=== PATIENT | female | born 1960 | race Caucasian/White ===

== ENCOUNTER 2025-08-12 06:38 | Inpatient (IN) | payer MEDICARE, SELFPAY ==
[2025-08-12] VITALS (54 sets, daily range): BP systolic 53–123; BP diastolic 25–79; PULSE 70–96; RESP 12–25; TEMP 32.4–36.7; O2SAT 92–100; BMI 36.8
--- NOTE | ~2025-08-12 | XR_ITS ---
Examination: XR chest 1V portable Clinical History: AMS, Liver failure Comparison: None Technique: Portable AP Findings: Heart size enlarged. Left mid and lower lung airspace disease, atelectasis, and diffusion. Extensive right perihilar opacity. No acute bony abnormality. IMPRESSION: 1. Recommend CT chest with contrast to better evaluate right perihilar abnormalities. 2. Left lung airspace disease and pleural effusion. Reviewed, dictated and finalized at location R. IMPRESSION: 1. Recommend CT chest with contrast to better evaluate right perihilar abnorma lities. 2. Left lung airspace disease and pleural effusion.
--- NOTE | ~2025-08-12 | XR_ITS ---
EXAMINATION: XR chest ET placement 08/12/2025 09:43 INDICATION: After intubation to confirm ETT placement TECHNIQUE:A single portable AP frontal image of the chest was obtained COMPARISON: Chest x-ray 08/12/2025; CT chest abdomen pelvis 08/12/2025 FINDINGS: Cardiomediastinal silhouette is moderately enlarged, unchanged. Nasogastric tube courses below the diaphragm, its tip is not visualized. No pneumothorax. Small right-sided pleural effusion. Small to moderate-sized left- sided pleural effusion. Moderate-sized patchy consolidations in the left lung most prominent in the lower lung. Interstitial and air space opacities scattered throughout both lungs. Tip of the endotracheal tube is 2.9 cm above the gray. Defect in the right mid clavicle with associated 5.8 cm mass. IMPRESSION: 1: Tip of the endotracheal tube is 2.9 cm above the gray. 2. Nasogastric tube courses below the diaphragm, its tip is not visualized. 3. Small right-sided pleural effusion. Small to moderate-sized left-sided pleural effusion. 4. Moderate-sized patchy consolidations in the left lung most prominent in the left lower lung. Recommend follow-up to resolution. 5. Interstitial and airspace opacities scattered throughout both lungs. Recommend follow-up to resolution. 6. Defect in the right mid clavicle with an associated 5.8 cm mass. Correlate clinically. Consider dedicated x-rays of the right clavicle further assessment Reviewed, dictated and finalized at location Q. IMPRESSION: 1: Tip of the endotracheal tube is 2.9 cm above the gray. 2. Nasogastric tube courses below the diaphragm, its tip is not visualized. 3. Small right-sided pleural effusion. Small to moderate-sized left-sided pleur al effusion. 4. Moderate-sized patchy consolidations in the left lung most prominent in the left lower lung. Recommend follow-up to resolution. 5. Interstitial and airspace opacities scattered throughout both lungs. Recomme nd follow-up to resolution. 6. Defect in the right mid clavicle with an associated 5.8 cm mass. Correlate c linically. Consider dedicated x-rays of the right clavicle further assessment
--- NOTE | ~2025-08-12 | CT_ITS ---
EXAMINATION: CT chest abdomen pelvis wo con DATE: 08/12/2025 07:50 INDICATION: Cirrhosis. Altered mental status. TECHNIQUE: Computed tomography (CT) of the chest, abdomen, and pelvis was performed without intravenous contrast. Automated exposure control and iterative reconstruction technique were employed. The dose-length product was 1872.50 mGy-cm. COMPARISON: None FINDINGS: CHEST CT: Small bilateral pleural effusions, left greater than right with associated dependent atelectasis in the bilateral upper and lower lobes. Mild cardiomegaly. Pulmonary vascular congestion with enlargement of the central pulmonary arteries but without omega pulmonary edema. There is decreased density of the blood pool relative to myocardium consistent with anemia. No pericardial effusion. Atherosclerotic coronary artery and aortic valve calcifications. Thoracic aorta are normal in caliber. No pathologically enlarged thoracic lymphadenopathy. There is a 6.0 x 4.7 cm loculated fluid collection with subtle peripheral rim calcification which is centered at a chronic nonunited fracture of the mid right clavicle. ABDOMEN/PELVIS CT: Shrunken nodular cirrhotic liver. Small calcified gallstones layering dependently in the nondistended gallbladder. Splenomegaly measuring 15.5 cm in length which along with prominent splenorenal collaterals are consistent with with secondary portal venous hypertension. Left adrenal gland is unremarkable in the clearly distinguish from the splenorenal collaterals. Right adrenal gland and pancreas are normal. Bilateral nonobstructing nephrolithiasis with 5 stones measuring up to 6 mm in the left kidney and at least 3 stones in the left kidney also measuring up to 5 mm maximal diameter. There is a couple stones in the proximal right ureter the larger and more caudal measuring 3 mm. No secondary hydronephrosis. There are a few phleboliths along the bilateral gonadal veins. Dockery catheter within the decompressed bladder. The uterus is not identified and has likely been surgically resected. No bowel obstruction. Normal appendix. There is wall thickening at the proximal colon which could be due to colitis or hepatic colopathy. Pelvic floor relaxation. Small amount of ascites scattered throughout the abdomen and pelvis. There is prominent mesenteric, retroperitoneal and extensive body wall edema. IMPRESSION: 1. Cardiomegaly with prominent pulmonary vascular congestion but without omega pulmonary edema. 2. Small bilateral pleural effusions with associated dependent compressive atelectasis in both lungs. 3. Cirrhosis with splenomegaly and prominent splenorenal collaterals consistent with secondary portal venous hypertension. 4. Bilateral nephrolithiasis including a couple stones measuring up to 3 mm in the proximal right ureter but without secondary hydronephrosis. 5. Edematous wall thickening in the proximal colon most likely related to hepatic colopathy with differential including colitis which could be infectious, inflammatory or ischemic in etiology. 6. Cholelithiasis. 7. Extensive body wall, mesenteric and retroperitoneal edema and small amount of ascites likely related to liver disease. 8. 6.0 x 4.7 cm loculated fluid collection without evident solid soft tissue component situated in the space between the ends of chronic nonunited right clavicle fracture. This could represent at the distal bursal formation related to the pseudoarthrosis between the nonunited bone fragments or chronic seroma. Could consider further evaluation with pre and postcontrast MRI to exclude an enhancing solid soft tissue component occult on noncontrast CT. 9. Anemia. Reviewed, dictated and finalized at location A. IMPRESSION: 1. Cardiomegaly with prominent pulmonary vascular congestion but without omega pulmonary edema. 2. Small bilateral pleural effusions with associated dependent compressive atel ectasis in both lungs. 3. Cirrhosis with splenomegaly and prominent splenorenal collaterals consistent with secondary portal venous hypertension. 4. Bilateral nephrolithiasis including a couple stones measuring up to 3 mm in the proximal right ureter but without secondary hydronephrosis. 5. Edematous wall thickening in the proximal colon most likely related to hepat ic colopathy with differential including colitis which could be infectious, inf lammatory or ischemic in etiology. 6. Cholelithiasis. 7. Extensive body wall, mesenteric and retroperitoneal edema and small amount o f ascites likely related to liver disease. 8. 6.0 x 4.7 cm loculated fluid collection without evident solid soft tissue co mponent situated in the space between the ends of chronic nonunited right clavi wayne fracture. This could represent at the distal bursal formation related to th e pseudoarthrosis between the nonunited bone fragments or chronic seroma. Could consider further evaluation with pre and postcontrast MRI to exclude an enhanc ing solid soft tissue component occult on noncontrast CT. 9. Anemia.
--- NOTE | ~2025-08-12 | XR_ITS ---
Clinical history:OGT placement EXAM:X-ray abdomen gastric tube insertion TECHNIQUE:A single portable AP supine image of the lower chest and upper abdomen was obtained. Comparisons:CT chest abdomen and pelvis 08/12/2025 FINDINGS: Nasogastric tube courses below the diaphragm, its tip projects over the lateral aspect of the left mid abdomen. Small bilateral pleural effusions. Small to moderate-sized patchy opacities in the visualized lungs. Moderate amount of air in the stomach. Small amount of air in a bowel loop in the midabdomen. IMPRESSION: Nasogastric tube courses below the diaphragm, its tip projects over the lateral aspect of the left mid abdomen Nonspecific abdomen If symptoms persist or worsen, consider a short-term follow-up study or additional imaging for further assessment. Reviewed, dictated and finalized at location Q. IMPRESSION: Nasogastric tube courses below the diaphragm, its tip projects over the lateral aspect of the left mid abdomen Nonspecific abdomen If symptoms persist or worsen, consider a short-term follow-up study or additio nal imaging for further assessment.
--- NOTE | ~2025-08-12 | US_ITS ---
US renal BI 08/12/2025 19:48 Procedure: Realtime transabdominal ultrasound of the kidneys and bladder. Indication: Acute renal insufficiency Comparison: CT chest abdomen pelvis Findings: Renal echotexture is normal bilaterally without hydronephrosis, contour deforming mass or renal calculus. The right kidney measures 13.7 cm and left kidney measures 13.6 cm. Bladder decompressed by Dockery catheter. Gallbladder wall is thickened. No definite gallstones is identified. Impression: 1: Unremarkable renal ultrasound. No stones, masses or hydronephrosis. 2: Mild gallbladder wall thickening. This could indicate interstitial edema, chronic liver disease or chronic cholecystitis. Reviewed, dictated and finalized at location O. Impression: 1: Unremarkable renal ultrasound. No stones, masses or hydronephrosis. 2: Mild gallbladder wall thickening. This could indicate interstitial edema, ch ronic liver disease or chronic cholecystitis.
--- NOTE | ~2025-08-12 | CT_ITS ---
CT HEAD NON-CONTRAST Clinical History: AMS Comparison: None Technique: Unenhanced axial images skull base to vertex Coronal, sagittal reformats CT images acquired with automatic exposure control for dose reduction DLP: 605 mGy-cm Findings: Sulci, ventricles: Unremarkable. No intracerebral hemorrhage. No evidence acute territorial infarct. No mass effect, midline shift. Bony calvarium intact. Visualized paranasal sinuses: Clear. Mastoid air cells: Clear. IMPRESSION: 1. No acute intracranial findings. Reviewed, dictated and finalized at location R.
--- NOTE | 2025-08-12 06:40 | ECG_ITS ---
Test Date: 2025-08-12 06:44:36 Measurements Intervals [place] Rate: 73 P: -11 HI: 144 QRS: 39 QRSD: 97 T: 34 QT: 401 QTc: 442 Interpretive Statements SINUS RHYTHM WITH OCCASIONAL VENTRICULAR PREMATURE COMPLEXES NONSPECIFIC ST & T-WAVE ABNORMALITY No previous ECG available for comparison Electronically Signed On 08-12-2025 11:12:52 CDT by Bo Castaneda M.D.
[2025-08-12] MEDS: LACTATED RINGERS 1,000 ML 999 ML (06:55)
[2025-08-12] MEDS: ALBUMIN HUMAN 25% 25 GM/100 ML 100 ML IVPB ×3 (07:07→17:15)
--- NOTE | 2025-08-12 07:15 | ED.AMS ---
HPI - Altered Mental Status General Chief Complaint: Altered Mental Status Stated Complaint: ams Time Seen by Provider: 08/12/25 07:15 History of Present Illness HPI narrative: Pt presents with altered mental status and low blood sugar and low blood pressure form [facility] [place] [facility]. Pt has AYALA with lever failure and resulting renal failure. Pt to meet with transplant team at [facility] next week so pt is full code. Sugar improved after D10. menta status still altered. Related Data Home Medications ?Medication ?Instructions ?Recorded ?Confirmed ?Last Taken ?Type bumetanide 1 mg tablet 1 mg PO BID 08/12/25 08/12/25 Unknown History calcium carbonate 1,250 mg PO DAILY 08/12/25 08/12/25 Unknown History carvedilol 3.125 mg tablet 3.125 mg PO Q12H 08/12/25 08/12/25 Unknown History ergocalciferol (vitamin D2) 1,250 1,250 mcg PO WEEKLY 08/12/25 08/12/25 Unknown History mcg (50,000 unit) capsule famotidine 20 mg tablet 20 mg PO DAILY 08/12/25 08/12/25 Unknown History insulin glargine 100 unit/mL (3 18 unit subcut HS 08/12/25 08/12/25 Unknown History mL) subcutaneous pen (Lantus Solostar U-100 Insulin) ondansetron 4 mg disintegrating 4 mg translingual Q6H PRN nausea 08/12/25 08/12/25 Unknown History tablet and vomiting Allergies Allergy/AdvReac Type Severity Reaction Status Date / Time morphine Allergy Rash Verified 03/29/25 18:48 peanut Allergy Rash Verified 03/29/25 18:48 tree nut Allergy Rash Verified 03/29/25 18:48 oxycodone AdvReac Nausea Verified 03/29/25 18:48 prednisone AdvReac Unknown Verified 03/29/25 18:48 Review of Systems Review of Systems: ROS unobtainable: Yes unobtainable due to medical condition [facility] Past Medical History Medical History Thrombocytopenia Liver cirrhosis Social History Social History Smoking status: Never smoker Second hand tobacco smoke exposure: No Alcohol intake: never Substance use: never Substance use type: does not use Do You Feel Safe in your Home?: Yes Lack of Transportation: No Lack of Food: Never True Current Housing: I Have Housing Concerned About Future Housing: No Difficulty Paying Gas/Electric Bills: No Difficulty Paying for Meds: No Currently Unemployed: No Education: Bachelor's Degree Difficulty w/ Childcare or Family Care: No Spiritual care concerns: Yes Exam Const: General: confusion and ill appearing Nutritional Appearance: obese Limitations: altered mental status HENMT: Mouth: Yes dry mucous membranes Chest: Chest palpation & inspection: normal inspection of the chest Resp: Effort & Inspection: normal respiratory effort Auscultation: clear to auscultation bilaterally Cardio: Rate: regular rate Rhythm: regular rhythm GI: GI Palp: Yes Soft to palpation and No Tenderness to palpation present (GI) Other: ascites Skin: General skin exam: jaundice Wounds: no wounds Neuro: Other: unresponsive Extrem: General: edema Course Vital Signs Vital signs: Vital Signs Temperature 97.9 F 08/12/25 06:38 Pulse Rate 74 08/12/25 06:38 Respiratory Rate 19 08/12/25 06:38 Blood Pressure 91/35 L 08/12/25 06:38 Pulse Oximetry 92 08/12/25 06:38 Oxygen Delivery Nasal Cannula 08/12/25 06:38 Oxygen Flow Rate 4 08/12/25 06:38 Temperature 97.5 F L 08/12/25 14:20 Pulse Rate 87 08/12/25 14:55 Respiratory Rate 24 H 08/12/25 14:20 Blood Pressure 95/36 L 08/12/25 14:20 Pulse Oximetry 100 08/12/25 16:00 Oxygen Delivery Mechanical Ventilation 08/12/25 16:00 Oxygen Flow Rate 4 08/12/25 08:10 Fraction of Inspired Oxygen 50 08/12/25 16:00 MDM - Altered Mental Status MDM Narrative Medical decision making narrative: Pt cirrhotic in liver failure from AYALA also renal failure. Pt full code per . Pt unstable. Work up for sepsis liver failure renal failure among others. Pt has anemia with hb of 6.3 at platelets of 24, wbc 0.6, BUN cr 98/4.59. UA pos for uti, right hilar infiltrate. Pt received 2 L ivf albumin, started on norepi at 5 mcg. Transfusion ordered. Discussed with Dr Jones at [place] [facility] ICU will accept for Dr Rondon for ICU but no beds. Discussed with Dr Hoyos. Will accept here and get line if needed. Differential Diagnosis Differential diagnosis: Likely altered mental status, delirium, dementia, hypoglycemia, hyponatremia, subarachnoid hemorrhage, sepsis and other (renal failure liver failure uti) Medical Records Attestation: I reviewed the patient's medical records. Lab Data Attestation: I reviewed the patient's lab results. 08/12/25 15:18 08/12/25 15:18 Labs: Lab Results 08/12/25 08/12/25 08/12/25 Range/Units 07:00 07:01 07:03 WBC 0.7 L* (4.5-10.0) K/mm3 RBC 1.87 L (4.2-5.4) M/mm3 Hgb 6.3 L* D (12.0-15.0) g/dL Hct 18.9 L* (37.0-47.0) % MCV 101.1 H (80-100) fl MCH 33.7 (26-34) pg MCHC 33.3 (32-36) g/dl RDW 20.2 H (11.5-14.5) % Plt Count 24 L* D (150-375) k/mm3 MPV 11.5 H (7.4-10.4) fl Immature Gran % (Auto) 0.0 (0-0.5) % Neut % (Auto) 74.7 H (45.5-73.1) % Lymph % (Auto) 21.1 (18.3-44.2) % [place] % (Auto) 4.2 (2.6-8.5) % Eos % (Auto) 0.0 (0-4.4) % Baso % (Auto) 0.0 L (0.2-1.2) % Lymph # (Auto) 0.15 L (0.9-3.2) K/mm3 [place] # (Auto) 0.0 L (0.1-0.6) K/mm3 Eos # (Auto) 0.0 (0-0.3) K/mm3 Baso # (Auto) 0.0 (0.0-0.1) K/mm3 Abs Immat Gran (auto) 0.00 (0.00-0.031) K/mm3 Absolute Neuts (auto) 0.5 L (1.3-6.7) K/mm3 Absolute Nucleated RBC 0.000 (0.0-0.012) K/mm3 Total Counted 100 Neutrophils % (Manual) 45 L (46-73) % Band Neutrophils % 25 H (0-6) % Lymphocytes % (Manual) 30.0 (18-44) % Nucleated RBC % 0.0 (0.0-0.2) % Abs Neuts (Manual) 0.49 L* (1.3-6.7) K/mm3 Abs Lymphs (Manual) 0.21 L (1.1-4.5) K/mm3 Smudge Cells Present Platelet Estimate Decreased (Adequate) % Immature Plt Fraction 4.2 (0.9-11.2) % Hypochromasia 2+ Anisocytosis 1+ Crenated Cell 1+ Acanthocytes (Spur) Occasional Schistocytes Rare PT 29.5 H (11.1-14.7) Seconds INR 2.9 APTT 53.3 H (22.3-36.8) Seconds Sodium 129 L (137-145) mmol/L Potassium 4.2 (3.4-5.0) mmol/L Chloride 94 L (98-107) mmol/L Carbon Dioxide 23 (22-30) mmol/L Anion Gap 12 (4-12) mmol/L BUN 98 H D (7-17) mg/dL Creatinine 4.59 H (0.7-1.0) mg/dL Estim Creat Clear Calc 12 ml/min Estimated GFR 10 L (59 - ) Glucose 154 H (65-110) mg/dL Lactic Acid 5.0 H* (0.7-2.0) mmol/L Calcium 8.4 (8.4-10.2) mg/dL Phosphorus 5.2 H (2.5-4.5) mg/dL Magnesium 1.7 (1.6-2.3) mg/dL Total Bilirubin 8.8 H (0.2-1.3) mg/dL AST 73 H (14-36) U/L ALT 46 H (6-35) U/L Alkaline Phosphatase 141 H (38-126) U/L Ammonia 20 (9-30) umol/L Troponin I 0.060 H* (0.000-0.034) ng/mL Total Protein 5.5 L (6.3-8.2) g/dL Albumin 2.3 L (3.5-5.1) g/dL Lipase 12 L (23-300) U/L TSH (Reflex) 9.630 H (0.465-4.68) uIU/mL Free T4 1.53 (0.78-2.19) ng/dL Total T3 0.39 L (0.82-1.58) NG/ML Urine Color (Yellow) Urine Appearance (Clear) Urine pH (5.0-9.0) Ur Specific [place] (1.001-1.035) Urine Protein (Negative) mg/dL Urine Glucose (UA) (Negative) mg/dL Urine Ketones (Negative) mg/dL Ur Blood (Man) (Negative) Urine Nitrate (Negative) Urine Bilirubin (Negative) Urine Urobilinogen (<2.0) mg/dL Add Ur Microanalysis Leukocyte Esterase Rfl (Negative) ZEN/UL Urine RBC (0-2) /hpf Urine WBC (0-3) /hpf Ur Squamous Epith Cells (Few) /hpf Urine Bacteria /hpf Urine Casts Hyaline Casts (None) /lpf Urine Yeast (Budding) (None) /hpf Influenza A (RT-PCR) Negative (Negative) Influenza B (RT-PCR) Negative (Negative) RSV (RT-PCR) Negative (Negative) SARS-CoV-2 RNA (RT-PCR) Negative (Negative) Blood Type O Negative Antibody Screen Negative Crossmatch See Detail 08/12/25 Range/Units 07:15 WBC (4.5-10.0) K/mm3 RBC (4.2-5.4) M/mm3 Hgb (12.0-15.0) g/dL Hct (37.0-47.0) % MCV (80-100) fl MCH (26-34) pg MCHC (32-36) g/dl RDW (11.5-14.5) % Plt Count (150-375) k/mm3 MPV (7.4-10.4) fl Immature Gran % (Auto) (0-0.5) % Neut % (Auto) (45.5-73.1) % Lymph % (Auto) (18.3-44.2) % [place] % (Auto) (2.6-8.5) % Eos % (Auto) (0-4.4) % Baso % (Auto) (0.2-1.2) % Lymph # (Auto) (0.9-3.2) K/mm3 [place] # (Auto) (0.1-0.6) K/mm3 Eos # (Auto) (0-0.3) K/mm3 Baso # (Auto) (0.0-0.1) K/mm3 Abs Immat Gran (auto) (0.00-0.031) K/mm3 Absolute Neuts (auto) (1.3-6.7) K/mm3 Absolute Nucleated RBC (0.0-0.012) K/mm3 Total Counted Neutrophils % (Manual) (46-73) % Band Neutrophils % (0-6) % Lymphocytes % (Manual) (18-44) % Nucleated RBC % (0.0-0.2) % Abs Neuts (Manual) (1.3-6.7) K/mm3 Abs Lymphs (Manual) (1.1-4.5) K/mm3 Smudge Cells Platelet Estimate (Adequate) % Immature Plt Fraction (0.9-11.2) % Hypochromasia Anisocytosis Crenated Cell Acanthocytes (Spur) Schistocytes PT (11.1-14.7) Seconds INR APTT (22.3-36.8) Seconds Sodium (137-145) mmol/L Potassium (3.4-5.0) mmol/L Chloride (98-107) mmol/L Carbon Dioxide (22-30) mmol/L Anion Gap (4-12) mmol/L BUN (7-17) mg/dL Creatinine (0.7-1.0) mg/dL Estim Creat Clear Calc ml/min Estimated GFR (59 - ) Glucose (65-110) mg/dL Lactic Acid (0.7-2.0) mmol/L Calcium (8.4-10.2) mg/dL Phosphorus (2.5-4.5) mg/dL Magnesium (1.6-2.3) mg/dL Total Bilirubin (0.2-1.3) mg/dL AST (14-36) U/L ALT (6-35) U/L Alkaline Phosphatase (38-126) U/L Ammonia (9-30) umol/L Troponin I (0.000-0.034) ng/mL Total Protein (6.3-8.2) g/dL Albumin (3.5-5.1) g/dL Lipase (23-300) U/L TSH (Reflex) (0.465-4.68) uIU/mL Free T4 (0.78-2.19) ng/dL Total T3 (0.82-1.58) NG/ML Urine Color Dark yellow (Yellow) Urine Appearance Turbid H (Clear) Urine pH 5.0 (5.0-9.0) Ur Specific [place] 1.014 (1.001-1.035) Urine Protein 2+ H (Negative) mg/dL Urine Glucose (UA) Negative (Negative) mg/dL Urine Ketones Trace H (Negative) mg/dL Ur Blood (Man) 3+ H (Negative) Urine Nitrate Negative (Negative) Urine Bilirubin 1+ H (Negative) Urine Urobilinogen 1.0 (<2.0) mg/dL Add Ur Microanalysis Reviewed Leukocyte Esterase Rfl 3+ H (Negative) ZEN/UL Urine RBC >100 H (0-2) /hpf Urine WBC >100 H (0-3) /hpf Ur Squamous Epith Cells Moderate (Few) /hpf Urine Bacteria 2+ H /hpf Urine Casts 11-20 Hyaline Casts Present (None) /lpf Urine Yeast (Budding) Present H (None) /hpf Influenza A (RT-PCR) (Negative) Influenza B (RT-PCR) (Negative) RSV (RT-PCR) (Negative) SARS-CoV-2 RNA (RT-PCR) (Negative) Blood Type Antibody Screen Crossmatch ABG Data ABG results: 08/12/25 07:05 VBG pH 7.365 VBG pCO2 39.2 L VBG pO2 98.3 H VBG HCO3 21.9 L O2 Delivery Device Nasal cannula O2 Liters/Min 4.0 FiO2 21 Attestation: I personally reviewed and interpreted this ABG as follows: Interpretation: no significant acidosis either metabolic or resp Imaging Data Attestation: I personally reviewed and interpreted this imaging study as follows: My impression: ascites on abd, pvc on cxr no edema, right perihilar infiltrate Radiologist's impression: Critical Care Time Critical Care Time Critical Care Time: Yes Total Critical Care Time: 60 Discharge Plan Discharge Clinical Impression: Fulminant liver failure, Renal failure, Anemia, Thrombocytopenia, Acute UTI, Sepsis, Altered mental status Patient Disposition: Still a Patient Condition: Critical
[2025-08-12 07:20] LABS: Immature Granulocyte Percent A 0.0 % (0-0.5); Immature Platelet Fraction Pct 4.2 % (0.9-11.2); Lymphocytes Absolute Auto 0.15 K/mm3 (0.9-3.2); Mean Corpuscular HGB Conc 33.3 g/dl (32-36); Mean Corpuscular Hemoglobin 33.7 pg (26-34); Mean Corpuscular Volume 101.1 fl (80-100); Nucleated Red Blood Cells Absolute Auto 0.000 K/mm3 (0.0-0.012); Nucleated Red Blood Cells Perc 0.0 % (0.0-0.2); Red Blood Count 1.87 M/mm3 (4.2-5.4)
[2025-08-12 07:20] LABS: Fractional Inspired Oxygen 21 %; HCO3 VBG 21.9 mEq/l (24.0-30.0); PCO2 VBG 39.2 mmHg (42.0-48.0); PO2 VBG 98.3 mmHg (35.0-45.0); pH VBG 7.365 (7.300-7.400)
[2025-08-12 07:23] LABS: Liters per Minute 4.0 LPM
[2025-08-12 07:23] LABS: Ammonia 20 umol/L (9-30)
[2025-08-12] MEDS: NOREPINEPHRINE 8 MG/D5W 250 ML 8 MG/250 ML BAG 8.5 MG (07:30)
[2025-08-12 07:37] LABS: INR 2.9; Prothrombin Time 29.5 Seconds (11.1-14.7)
[2025-08-12 07:38] LABS: Partial Thromboplastin Time 53.3 Seconds (22.3-36.8)
[2025-08-12 07:39] LABS: Alanine Aminotransferase 46 U/L (6-35); Albumin Level 2.3 g/dL (3.5-5.1); Alkaline Phosphatase 141 U/L (38-126); Anion Gap 12 mmol/L (4-12); Aspartate Amino Transferase 73 U/L (14-36); Bilirubin,Total 8.8 mg/dL (0.2-1.3); Blood Urea Nitrogen 98 mg/dL (7-17); Calcium 8.4 mg/dL (8.4-10.2); Carbon Dioxide 23 mmol/L (22-30); Chloride 94 mmol/L (98-107); Estimated CRCL calculation 12 ml/min; Estimated Glomerular Filt Rate 10; Glucose 154 mg/dL (65-110); Lipase 12 U/L (23-300); Magnesium 1.7 mg/dL (1.6-2.3); Potassium 4.2 mmol/L (3.4-5.0); Sodium 129 mmol/L (137-145); Total Protein 5.5 g/dL (6.3-8.2)
[2025-08-12 07:42] LABS: Add Urine Microscopic? YES; Appearance Urine Turbid (Clear); Budding Yeast Urine Present /hpf; Glucose Urine UA Negative (Negative); Leukocyte Esterase Ur 3+ LEU/UL (Negative); Need Manual Microscopic Reviewed; Nitrate Urine Negative (Negative); Specific Grav Ur 1.014 (1.001-1.035)
[2025-08-12 07:52] LABS: Troponin I 0.060 ng/mL (0.000-0.034)
[2025-08-12 07:54] LABS: Influenza A QL RT-PCR Negative (Negative); Influenza B QL RT-PCR Negative (Negative); RSV RNA, RT-PCR Negative (Negative); SARS-CoV-2 RNA PCR Negative (Negative)
[2025-08-12 07:55] LABS: Hemoglobin 6.3 g/dL (12.0-15.0); White Blood Count 0.7 K/mm3 (4.5-10.0)
[2025-08-12 07:56] LABS: Hematocrit 18.9 % (37.0-47.0); Platelet Count Result 24 k/mm3 (150-375)
[2025-08-12] MEDS: cefTRIAXone 2 GM in SODIUM CHLORIDE 0.9% IV 100 ML 200 ML IVPB (08:07)
[2025-08-12 08:09] LABS: Thyroid Stimulating Hormone Reflex 9.630 uIU/mL (0.465-4.68)
[2025-08-12 08:17] LABS: Band Neutrophils Percent 25 % (0-6); Lymphocytes Absolute Manual 0.21 K/mm3 (1.1-4.5); Lymphocytes Percent Manual 30.0 % (18-44); Neutrophils Absolute Manual 0.49 K/mm3 (1.3-6.7); Neutrophils Percent Manual 45 % (46-73); Total Cells Counted 100
[2025-08-12 08:18] LABS: Hypochromasia 2+; Schistocytes Rare; Smudge Cells PRESENT
[2025-08-12 08:19] LABS: Anisocytosis 1+
[2025-08-12 08:22] LABS: Acanthocytes Occasional; Crenated RBC 1+
[2025-08-12] MEDS: AZITHROMYCIN IV 500 MG in SODIUM CHLORIDE 0.9% IV 250 ML IVPB (08:26)
--- NOTE | 2025-08-12 08:54 | PC.NURSE ---
0854-CALLED TO ICU TO GIVE REPORT. STEEL HANGER TO CALL BACK FOR REPORT.
--- NOTE | 2025-08-12 09:03 | PC.NURSE ---
0903-REPORT TO GONZALES LOWE IN ICU. PATIENT ADMITTED TO ICU #4.
--- NOTE | 2025-08-12 09:14 | ADMGEN ---
This patient, Makenna Wilson, was admitted to Intensive Care Unit-4. Patient/family oriented to hospital policies and general routines including ID bracelet, bed and alarms, visiting hours, pain management, procedures, bathroom and other care routines, personal items, smoking policy, room service/diet, and visiting hours. Information on how to activate the Rapid Response Team has been discussed. Patient/Family are encouraged to report perceived risks to care and to ask questions if they do not understand what they are told or what they should do.
[2025-08-12] MEDS: ETOMIDATE 20 MG/10 ML AMPUL IV PUSH (09:25)
[2025-08-12] MEDS: ROCURONIUM BROMIDE 50 MG/5 ML VIAL IV PUSH (09:26)
[2025-08-12] MEDS: NOREPINEPHRINE 8 MG/D5W 250 ML 8 MG/250 ML BAG 37.5 MG IV CONT (09:30)
--- NOTE | 2025-08-12 09:41 | ECG_ITS ---
Test Date: 2025-08-12 09:45:20 Measurements Intervals [place] Rate: 86 P: 48 DE: 170 QRS: 33 QRSD: 104 T: 123 QT: 432 QTc: 520 Interpretive Statements SINUS RHYTHM NONSPECIFIC ST AND T-WAVE ABNORMALITY Compared to ECG 08/12/2025 06:44:36 NO SIGNIFICANT CHANGES Electronically Signed On 08-12-2025 11:25:59 CDT by Bo Castaneda M.D.
--- NOTE | 2025-08-12 09:44 | PC.NURSE ---
0910-PATIENT BEING TRANSPORTED TO ICU #4 ACCOMPANIED BY TWO NURSES. UPON EXITING THE ELEVATOR TO ICU, PULSE OXIMETRY BEGAN ALARMING SHOWING O2 SATURATION OF 79%. PULSE OXIMETRY REPOSITIONED ON PATIENT'S FINGER SHOWING PULSE OX OF 70%. HEART RATE OF 72. PATIENT REMAINS ON O2 @ 4L/NC. PATIENT NOTED TO HAVE SHALLOW RESPIRATIONS OF 8-10 PER MINUTE. PATIENT IN ICU AT THIS TIME AND IMMEDIATELY BEGAN BAGGING WITH 100% O2. PATIENT TRANSFERRED TO ICU BED AT WHICH TIME ICU NURSES ASSUMED CARE OF PATIENT.
--- NOTE | 2025-08-12 09:49 | PC.NURSE ---
0910-PATIENT WAS TRANSPORTED TO ICU WITH BLOOD INFUSING TO LEFT WRIST AND LEVOPHED INFUSING TO RIGHT FOREARM,.
[2025-08-12] MEDS: SODIUM CHLORIDE 0.9% IV 250 ML 30 ML IV CONT ×3 (10:00→12:41)
[2025-08-12 10:17] LABS: Alveolar/Arterial O2 Gradient 589.7 mmHg; Fractional Inspired Oxygen 100 %; HCO3 ABG 22.1 mEq/l (22.0-26.0); Oxygen Content ABG 11.1 %vol (16.0-22.0); Oxygen Saturation ABG 91.1 % (95.0-100.0); PCO2 ABG 52.7 mmHg (35.0-45.0); PO2 ABG 70.6 mmHg (80.0-100.0); PO2 FiO2 Ratio Arterial Blood 0.71 %
[2025-08-12 10:19] LABS: Arterial Blood Gas Tidal Volume 400 ml; Arterial Blood Gas Ventilator rate 24 /MIN
[2025-08-12 10:25] LABS: MRSA (PCR) NOT DETECTED (NOT DETECTE)
[2025-08-12] MEDS: MINERAL OIL/WHITE PETROLATUM OINTMENT 1 APPLIC EACH EYE ×2 (10:51→20:06)
[2025-08-12] MEDS: PANTOPRAZOLE SODIUM IV 40 MG VIAL IV PUSH ×2 (10:51→20:06)
[2025-08-12] MEDS: FENTANYL 2,500MCG/NS250ML(*CRX 2,500 MCG/250 ML BAG IV CONT (10:51)
[2025-08-12] MEDS: MIDAZOLAM 100MG/NS 100ML(*CRX) 100 MG/100 ML BAG IV CONT (10:51)
[2025-08-12] MEDS: VASOPRESSIN INJ 100 UNITS in DEXTROSE 5% 95 ML IV CONT (11:28)
[2025-08-12] MEDS: CEFEPIME 1 GM in SODIUM CHLORIDE 0.9% IV 50 ML 100 ML IVPB (11:29)
[2025-08-12 11:32] LABS: Troponin I 0.057 ng/mL (0.000-0.034)
[2025-08-12] MEDS: PHYTONADIONE ADULT INJ 10 MG in DEXTROSE 5% IN WATER 50 ML 100 MG IVPB (11:38)
[2025-08-12 11:47] LABS: Alveolar/Arterial O2 Gradient 332.4 mmHg; Carboxyhemoglobin 1.0 % THb (0-2.0); Fractional Inspired Oxygen 100 %; HCO3 ABG 18.9 mEq/l (22.0-26.0); Methemoglobin ABG 0.1 %THb (0-1.5); Oxygen Content ABG 13.5 %vol (16.0-22.0); Oxygen Saturation ABG 99.8 % (95.0-100.0); PCO2 ABG 33.9 mmHg (35.0-45.0); PO2 ABG 346.7 mmHg (80.0-100.0); PO2 FiO2 Ratio Arterial Blood 3.47 %; Reduced Hemoglobin 0.4 %THb (0-5.0)
[2025-08-12 11:49] LABS: Site Drawn RIGHT RADIAL
[2025-08-12 11:50] LABS: Arterial Blood Gas Tidal Volume 400 ml; Arterial Blood Gas Ventilator rate 24 /MIN; Modified Allen's Test Pass
[2025-08-12] MEDS: VANCOMYCIN 1,500 MG/NS 500 ML 1,500 MG/500 ML BAG 250 MG IVPB (12:09)
--- NOTE | 2025-08-12 12:14 | P.HP_ITS ---
H&P: HPI History of Present Illness Date/Time: 08/12/25 12:14 Chief Complaint: Status Narrative: 64-year-old female past medical history of AYALA, diabetes type 2, hypertension, AFib with RVR, mild diastolic dysfunction, and thrombocytopenia presents the hospital with altered mental status. Patient presents from a alf, HPI is gathered from record review as patient is intubated and sedated in ICU. states that the patient's last meld score was 37, she was post meet with the transplant team next week for evaluation. Lab work shows a white count of 0.7, hemoglobin is 6.3, platelet count 24, INR of 2.9, ABG is 7.3, pCO2 33, PO2 of 346, bicarb of 18.9 on the ventilator, sodium 129, chloride of 94, creatinine of 4.59 her baseline being 1.2, GFR 10, lactic acid of 5.0 followed by 6.3, phosphorus of 5.2, total bili of 8.8, AST 73 ALT 46, alkaline phos 141, troponin 0.060 followed by 0.057, TSH 9.63, urine is turbid with 1+ bilirubin, 3+ leukocyte esterase, are 100 RBCs, over 100 wbc's, 2+ bacteria and yeast. Influenza A/B RSV and COVID negative. MRSA negative. Head CT shows no acute findings. Chest abdomen pelvis CT show pulmonary vascular congestion couple small bilateral pleural effusions, cirrhosis with splenomegaly, bilateral nephrolithiasis, extensive edema. Patient is being admitted to the ICU for severe septic shock likely is related due to UTI complicated by Ayala. Nephrology consulted for acute kidney failure 8:50 p.m. art line has been placed, patient is on Shirlene Hugger due to hypothermia, she is on 3 vasopressors almost maxed out, lactic is continue to trend up, most recent lactic is 11.8. General surgery has been consulted for possible bowel ischemia however due to patient being severely critical she is not a surgical candidate at this time. Patient has been accepted by [facility] however there is no beds at this current time. Review of Systems Review of Systems: ROS unobtainable: Yes unobtainable due to medical condition PMFSH Past Medical History Medical History Thrombocytopenia Liver cirrhosis Social History Social History Smoking status: Never smoker Second hand tobacco smoke exposure: No Alcohol intake: never Substance use: never Substance use type: does not use Do You Feel Safe in your Home?: Yes Lack of Transportation: No Lack of Food: Never True Current Housing: I Have Housing Concerned About Future Housing: No Difficulty Paying Gas/Electric Bills: No Difficulty Paying for Meds: No Currently Unemployed: No Education: Bachelor's Degree Difficulty w/ Childcare or Family Care: No Spiritual care concerns: Yes Meds Home Medications and Allergies Home Medications ?Medication ?Instructions ?Recorded ?Confirmed ?Type acetaminophen 500 mg tablet 500 mg PO BID PRN Mild Jewel n (1-3) 04/12/25 08/12/25 Rx Or Fever #0 tabs lactulose 10 gram/15 mL oral 20 g (30 mL) PO 5 TIMES D AILY #0 mL 04/12/25 08/12/25 Rx solution bumetanide 1 mg tablet 1 mg PO BID 08/12/25 5 History calcium carbonate 1,250 mg PO DAILY 08/12/25 0 08/12/25 History carvedilol 3.125 mg tablet 3.125 mg PO Q12H 08/12/25 0 08/12/25 History ergocalciferol (vitamin D2) 1,250 1,250 mcg PO WEEKLY 08/12/25 08/12/25 History mcg (50,000 unit) capsule famotidine 20 mg tablet 20 mg PO DAILY 08/12/2508/02 History insulin glargine 100 unit/mL (3 18 unit subcut HS 08/0208/12/25 History mL) subcutaneous pen (Lantus Solostar U-100 Insulin) ondansetron 4 mg disintegrating 4 mg translingual Q6H PRN nausea 08/12/25 08/12/25 History tablet and vomiting Allergies Allergy/AdvReac Type Severity Reaction Status Date / Time morphine Allergy Rash Verified 03/29/25 18:48 peanut Allergy Rash Verified 03/29/25 18:48 tree nut Allergy Rash Verified 03/29/25 18:48 oxycodone AdvReac Nausea Verified 03/29/25 18:48 prednisone AdvReac Unknown Verified 03/29/25 18:48 Vital Signs Vital Signs - 24 hr 08/12/25 06:38 08/12/25 07:23 08/12/25 07:27 Temperature 97.9 F 98 F Pulse Rate 74 74 74 Respiratory Rate 19 24 H Blood Pressure 91/35 L 80/25 L Pulse Oximetry 92 94 Oxygen Delivery Nasal Cannula Oxygen Flow Rate 4 Fraction of Inspired Oxygen 08/12/25 07:30 08/12/25 07:54 08/12/25 08:08 Temperature Pulse Rate 72 76 75 Respiratory Rate 20 20 Blood Pressure 76/43 L 63/35 L 90/35 L Pulse Oximetry 93 95 Oxygen Delivery Oxygen Flow Rate Fraction of Inspired Oxygen 08/12/25 08:10 08/12/25 08:30 08/12/25 08:41 Temperature Pulse Rate 74 72 Respiratory Rate 20 Blood Pressure 80/27 L 59/36 L Pulse Oximetry 93 95 Oxygen Delivery Nasal Cannula Oxygen Flow Rate 4 Fraction of Inspired Oxygen 08/12/25 09:04 08/12/25 09:06 08/12/25 09:19 Temperature 97.2 F L 98 F Pulse Rate 72 72 88 Respiratory Rate 19 20 16 Blood Pressure 53/29 L 53/29 L 86/40 L Pulse Oximetry 95 93 100 Oxygen Delivery Oxygen Flow Rate Fraction of Inspired Oxygen 08/12/25 09:30 08/12/25 09:45 08/12/25 09:51 Temperature Pulse Rate 82 85 88 Respiratory Rate Blood Pressure 86/41 L 104/40 L Pulse Oximetry 100 Oxygen Delivery Mechanical Ventilation Oxygen Flow Rate Fraction of Inspired Oxygen 100 08/12/25 10:00 08/12/25 10:00 08/12/25 10:51 Temperature Pulse Rate 88 89 78 Respiratory Rate 15 12 Blood Pressure 120/50 L Pulse Oximetry 100 Oxygen Delivery Oxygen Flow Rate Fraction of Inspired Oxygen 08/12/25 10:51 08/12/25 11:28 08/12/25 11:31 Temperature 97.9 F Pulse Rate 78 81 80 Respiratory Rate 12 24 H Blood Pressure 85/39 L 92/36 L Pulse Oximetry 100 Oxygen Delivery Oxygen Flow Rate Fraction of Inspired Oxygen 08/12/25 11:47 08/12/25 11:51 08/12/25 12:00 Temperature 98.0 F Pulse Rate 81 81 81 Respiratory Rate 25 H 16 Blood Pressure 90/76 L 104/38 L 102/40 L Pulse Oximetry 100 100 Oxygen Delivery Oxygen Flow Rate Fraction of Inspired Oxygen Exam Narrative: General: Intubated sedated HEENT: normocephalic, atraumatic. Mucous membranes moist. EOMI, PERRLA, b ilateral scleral icterus no conjunctival injection. Neck supple without JVD, lymphadenopathy, or bruit. NG Respiratory: clear to ascultation bilaterally. Synchronized with that Cardiovascular: Regular rate and rhythm, normal S1-S2 upon ascultation. No murmurs, rubs, or clicks. , capillary refill less than 3 second. Abdomen: Mildly firm, Soft, round, no pulsatile masses, nondistended and nonte nder. No rebound, no guarding. Bowel sounds hypoactive Extremities: No cyanosis, clubbing, Pulses are palpable, 4+ generalized edema Neuro: PERRLA. Skin: Warm, dry, and intact, without rash, erythema, or lesion. Jaundice Psych: Unable to assess H&P: Results Labs Labs: Short CBC 08/12/25 Range/Units 07:01 WBC 0.7 L* (4.5-10.0) K/mm3 Hgb 6.3 L* D (12.0-15.0) g/dL Hct 18.9 L* (37.0-47.0) % Plt Count 24 L* D (150-375) k/mm3 BMP 08/12/25 07:03 Sodium 129 L Potassium 4.2 Chloride 94 L Carbon Dioxide 23 BUN 98 H D Creatinine 4.59 H Glucose 154 H Calcium 8.4 Cardiac Enzymes 08/12/25 08/12/25 Range/Units 07:03 10:53 Troponin I 0.060 H* 0.057 H* (0.000-0.034) ng/mL Liver Function 08/12/25 Range/Units 07:03 Total Bilirubin 8.8 H (0.2-1.3) mg/dL AST 73 H (14-36) U/L ALT 46 H (6-35) U/L Alkaline Phosphatase 141 H (38-126) U/L Albumin 2.3 L (3.5-5.1) g/dL Urine 08/12/25 Range/Units 07:15 Urine Color Dark yellow (Yellow) Urine Appearance Turbid H (Clear) Urine pH 5.0 (5.0-9.0) Ur Specific [place] 1.014 (1.001-1.035) Urine Protein 2+ H (Negative) mg/dL Urine Glucose (UA) Negative (Negative) mg/dL Assessment and Plan Assessment and plan (1) Fulminant liver failure: Code(s): K72.90 - Hepatic failure, unspecified without coma Status: Acute Assessment and Plan: Patient intubated sedated ICU, Patient has been accepted by [facility] however currently there are no bed Patient's lactic continues to trend up 11.8 General surgery consulted for possible bowel ischemia however currently at this time this patient is not a surgical candidate Family is aware the patient is critically ill (2) Acute UTI: Code(s): N39.0 - Urinary tract infection, site not specified Status: Acute Assessment and Plan: Acute septic shock with hypotension Blood cultures pending Urine culture pending Rocephin, azithromycin and vancomycin Vasopressors and albumin for severe hypotension (3) Altered mental status: Code(s): R41.82 - Altered mental status, unspecified Status: Acute Assessment and Plan: Likely due to severe septic shock and UTI Head CT with no acute findings Treat underlying infection Treat metabolic abnormalities Continue lactulose (4) Thrombocytopenia: Code(s): D69.6 - Thrombocytopenia, unspecified Status: Acute Assessment and Plan: Patient given to use RBCs, 2 units platelets and plasma (5) Elevated INR: Code(s): R79.1 - Abnormal coagulation profile Status: Acute Assessment and Plan: Supratherapeutic, Due to liver failure Transfuse 2 units of platelets (6) Renal failure: Code(s): N19 - Unspecified kidney failure Status: Acute Assessment and Plan: Nephrology consulted (7) Acute blood loss anemia: Code(s): D62 - Acute posthemorrhagic anemia Status: Acute Assessment and Plan: Transfuse 2 units RBCs No signs of acute bleed Per family the patient got erythropoietin last week (8) Type 2 diabetes mellitus: Code(s): E11.9 - Type 2 diabetes mellitus without complications Status: Acute Assessment and Plan: Patient placed on dextrose due to hypoglycemia Quality VTE Prophylaxis VTE prophylaxis: mechanical ordered If No VTE Prophylaxis Answer both mechanical and pharmacologic: Reason no mechanical VTE proph: medical contraindication Hospitalist MIPS Advance Care Plan I have confirmed that the patient's Advanced Care Plan is present, code status is documented, or surrogate decision maker is listed in patient medical record.: Yes Medication Reconciliation I have utilized all available resources to obtain, update and review the patients current medications (includes all prescriptions, OTC, herbals, cannabis, and nutritional supplements).: Yes
[2025-08-12] MEDS: PHENYLEPHRINE HCL INJ 50 MG in SODIUM CHLORIDE 0.9% IV 245 ML 12 ML IV CONT (12:19)
[2025-08-12 12:31] LABS: Free T4 Free Thyroxine Reflex 1.53 ng/dL (0.78-2.19)
[2025-08-12] MEDS: CENTRAL LINE FLUSH 10 ML IV PUSH ×2 (13:11→20:06)
--- NOTE | 2025-08-12 13:12 | P.CONIN_ITS ---
Assessment and Plan Assessment and plan (1) Acute respiratory failure: Code(s): J96.00 - Acute respiratory failure, unspecified whether with hypoxia or hypercapnia Status: Acute Assessment and Plan: 08/12: Upon arrival to the ICU, patient was hypoxic, with agonal breathing, urgently intubated patient -currently on CMV mode of ventilation, peep of 8, 100% FiO2, -ABGs and chest x-ray reviewed, wean FiO2 to maintain O2 sats > 92% -sedated with infuse fentanyl and Versed infusion -maintain RASS of 0 to -2 -daily SAT and SBT (2) Septic shock: Code(s): A41.9 - Sepsis, unspecified organism; R65.21 - Severe sepsis with septic shock Status: Acute Assessment and Plan: Septic shock likely related to UTI/pneumonia -neutropenia, afebrile -08/12: Blood cultures have been obtained -08/12: Urine culture are ordered -08/12: Start patient on cefepime, azithromycin and vanc, -patient received 2 L of IV fluids in the ED, -will be receiving multiple units of blood product -will start albumin q.6 hours x4 doses for intravascular volume expansion -lactic acid was 5.0 on admission, repeat was 6.3, will trend lactic acid -currently on Levophed, vasopressin and Nolan-Synephrine, maintain systolic blood pressures greater than 100 mmHg>, map > 65 mmHg for adequate end organ perfusion (3) Acute renal failure: Code(s): N17.9 - Acute kidney failure, unspecified Status: Acute Assessment and Plan: Patient presented with acute kidney injury, creatinine not in remission was 4.59 on 08/12, (baseline creatinine 1 point 1 4-1.22 (April 2025) -patient has been adequately fluid resuscitated with 2 L of IV fluids and multiple units of blood product -albumin for intravascular volume expansion -will consult nephrology -check urine lytes and urine eosinophils along with CK level -check renal ultrasound -monitor urine output, electrolytes and renal function 08/12: CT scan of the chest abdomen and pelvis: Impression: Showed pulmonary vascular congestion small bilateral pleural effusions cirrhosis with splenomegaly and prominent splenorenal collaterals consistent with secondary portal hypertension. Bilateral nephrolithiasis without hydronephrosis cm wall thickening in the proximal colon likely related to hepatic colopathy, cholelithiasis. Extensive body wall mesenteric and retroperitoneal edema and small amount of ascites likely related to liver disease. 6.0 x 4.7 cm loculated fluid collection without evident solid soft tissue component situated in the space between the ends of chronic nonunited right clavicle fracture (4) Altered mental status: Code(s): R41.82 - Altered mental status, unspecified Status: Acute Assessment and Plan: Likely related to hypotension, possible hypoxia/respiratory failure, shock, acute renal failure -currently intubated and sedated -08/12: CT scan brain with no acute intracranial abnormalities (5) Acute UTI: Code(s): N39.0 - Urinary tract infection, site not specified Status: Acute Assessment and Plan: Urinalysis reflective of UTI, -cultures obtained, continue antibiotic as above (6) Anemia: Code(s): D64.9 - Anemia, unspecified Status: Acute Assessment and Plan: Patient presented with anemia with hemoglobin of 6.3 -according the has been patient was 6.9 and a hemoglobin on 08/09 or 08/10 and was transfused 1 unit of packed RBCs 2 days ago -08/12: 2 units packed RBCs were ordered in the ER and have been transfuse -could be related to septic shock, liver cirrhosis, bone marrow suppression, GI bleed -no overt bleeding has been noticed, will continue to monitor and transfuse as required, will maintain hemoglobin > 7.0 (7) Thrombocytopenia: Code(s): D69.6 - Thrombocytopenia, unspecified Status: Acute Assessment and Plan: Patient has a history of thrombocytopenia and normally has a platelet count of 60s to 90s .-08/12: Platelet counts were 24, given anemia and low hemoglobin, transfuse 2 units of platelets -will continue to monitor (8) Type 2 diabetes mellitus: Code(s): E11.9 - Type 2 diabetes mellitus without complications Status: Acute Assessment and Plan: Sliding scale insulin Accu-Cheks (9) Liver cirrhosis: Code(s): K74.60 - Unspecified cirrhosis of liver Status: Acute Assessment and Plan: Liver cirrhosis likely secondary to AYALA, patient was supposed to meet up with [facility] liver transplant team this week. -ER physician stated that the patient has been accepted to [facility] and awaiting a bed. -ammonia levels within normal limits with patient is on lactulose at home, will start daily lactulose here (10) Coagulopathy: Code(s): D68.9 - Coagulation defect, unspecified Status: Acute Assessment and Plan: Coagulopathy with INR of 2.9 an elevated PTT -likely related to liver dysfunction -vitamin K has been ordered -will give 1 unit of FFP Plan DVT prophylaxis: SCDs, no chemoprophylaxis due to anemia and thrombocytopenia Stress ulcer prophylaxis: Protonix IV q.12 hours Nutrition: NPO for now Code Status: DNR Critical Care Time Spent: 77 minutes Discussed with patient's , daughter and other family members and discuss with them in details regarding patient's condition and plan of care. They are aware that patient's condition is guarded. The agreed upon making her a DNR. The aware that patient is in septic shock requiring 3 blood pressure support medications antibiotic. That she is receiving packed RBCs, platelets, FFP, vitamin K for liver dysfunction. She also has acute renal dysfunction ended her acid levels are elevated. I answered all questions Due to a high probability of clinically significant, life threatening deterioration, the patient required my highest level of preparedness to intervene emergently and I personally spent this critical care time directly and personally managing the patient. This critical care time included obtaining a history; examining the patient; pulse oximetry; ordering and review of studies; arranging urgent treatment with development of a management plan; evaluation of patient's response to treatment; frequent reassessment; and discussions with other providers. It was exclusive of separately billable procedures and treating other patients and teaching time. Please see Assessment and Plan section and the rest of the note for further information on patient assessment and treatment This dictation may have been done utilizing a voice recognition system. Attempts have been made to correct errors. However, there may be uncorrected grammatical, spelling, and recognitions errors present. 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 The ER patient was found to be in acute renal failure, anemic, hypotensive. Patient was given 2 L IV fluid bolus and started on Levophed through a peripheral IV. Patient was transferred to the ICU for further management. Upon arrival to the ICU due to patient hypoxic, agonal breathing, emergently intubated the patient after providing bag-mask ventilation. Patient was hypotensive with systolics in the 60s upon arrival to the ICU, Levophed was increased and was infusing through a peripheral access. Given her thrombocytopenia I urgently placed a right femoral central line. Put in labs in the ED showed WBC count of 0.7, hemoglobin 6.3, platelets 24. Sodium 129, potassium 4.2, CO2 23, BUN 98, creatinine 4.59, blood sugars 154. INR of 2.9 PTT of 53.3. Elevated LFTs, troponin 0.060 in 0.057, albumin of 2.3, lipase 12, TSH 9.63, free T4 1.53. UA reflective of UTI. Influenza, RSV and SARS-CoV-2 PCR were negative -chest x-ray showed small right pleural effusion, small to moderate-sized left- sided pleural effusion patchy consolidation left lung most prominent in the left lower now. Interstitial and airspace opacities scattered throughout both lungs defect in the right mid clavicle with an associated 5.8 cm mass -CT scan of the chest abdomen and pelvis: Showed pulmonary vascular congestion small bilateral pleural effusions cirrhosis with splenomegaly and prominent splenorenal collaterals consistent with secondary portal hypertension. Bilateral nephrolithiasis without hydronephrosis cm wall thickening in the proximal colon likely related to hepatic colopathy, cholelithiasis. Extensive body wall mesenteric and retroperitoneal edema and small amount of ascites likely related to liver disease. 6.0 x 4.7 cm loculated fluid collection without evident solid soft tissue component situated in the space between the ends of chronic nonunited right clavicle fracture Patient seen examined upon arrival to the ICU, was intubated, placed in urgent central line after discussing with the family. Placed on CMV mode of ventilation, peep of 8, 100% FiO2 for now. Patient was on Levophed, which was maxed out and then was started on vasopressin and phenylephrine was also added. Patient had has 2 units of packed RBCs, 1 unit of FFP and 2 units of platelets ordered. Repeat lactic acid was 6.3 (from 5.0) Review of Systems 2 Review of Systems: ROS unobtainable: Yes unobtainable due to endotracheal tube, unobtainable due to medical condition and unobtainable due to mental status PMFSH Past Medical History Medical History Thrombocytopenia Liver cirrhosis Social History Social History Smoking status: Never smoker Second hand tobacco smoke exposure: No Alcohol intake: never Substance use: never Substance use type: does not use Do You Feel Safe in your Home?: Yes Lack of Transportation: No Lack of Food: Never True Current Housing: I Have Housing Concerned About Future Housing: No Difficulty Paying Gas/Electric Bills: No Difficulty Paying for Meds: No Currently Unemployed: No Education: Bachelor's Degree Difficulty w/ Childcare or Family Care: No Spiritual care concerns: Yes Meds Home Medications and Allergies Home Medications ?Medication ?Instructions ?Recorded ?Confirmed ?Type acetaminophen 500 mg tablet 500 mg PO BID PRN Mild Jewel n (1-3) 04/12/25 08/12/25 Rx Or Fever #0 tabs lactulose 10 gram/15 mL oral 20 g (30 mL) PO 5 TIMES D AILY #0 mL 04/12/25 08/12/25 Rx solution bumetanide 1 mg tablet 1 mg PO BID 08/12/25 5 History calcium carbonate 1,250 mg PO DAILY 08/12/25 0 08/12/25 History carvedilol 3.125 mg tablet 3.125 mg PO Q12H 08/12/25 0 08/12/25 History ergocalciferol (vitamin D2) 1,250 1,250 mcg PO WEEKLY 08/12/25 08/12/25 History mcg (50,000 unit) capsule famotidine 20 mg tablet 20 mg PO DAILY 08/12/2508/02 History insulin glargine 100 unit/mL (3 18 unit subcut HS 08/0208/12/25 History mL) subcutaneous pen (Lantus Solostar U-100 Insulin) ondansetron 4 mg disintegrating 4 mg translingual Q6H PRN nausea 08/12/25 08/12/25 History tablet and vomiting Allergies Allergy/AdvReac Type Severity Reaction Status Date / Time morphine Allergy Rash Verified 03/29/25 18:48 peanut Allergy Rash Verified 03/29/25 18:48 tree nut Allergy Rash Verified 03/29/25 18:48 oxycodone AdvReac Nausea Verified 03/29/25 18:48 prednisone AdvReac Unknown Verified 03/29/25 18:48 Vital Signs Vital Signs - 24 hr 08/12/25 06:38 08/12/25 07:23 08/12/25 07:27 Temperature 97.9 F 98 F Pulse Rate 74 74 74 Respiratory Rate 19 24 H Blood Pressure 91/35 L 80/25 L Pulse Oximetry 92 94 Oxygen Delivery Nasal Cannula Oxygen Flow Rate 4 Fraction of Inspired Oxygen 08/12/25 07:30 08/12/25 07:54 08/12/25 08:08 Temperature Pulse Rate 72 76 75 Respiratory Rate 20 20 Blood Pressure 76/43 L 63/35 L 90/35 L Pulse Oximetry 93 95 Oxygen Delivery Oxygen Flow Rate Fraction of Inspired Oxygen 08/12/25 08:10 08/12/25 08:30 08/12/25 08:41 Temperature Pulse Rate 74 72 Respiratory Rate 20 Blood Pressure 80/27 L 59/36 L Pulse Oximetry 93 95 Oxygen Delivery Nasal Cannula Oxygen Flow Rate 4 Fraction of Inspired Oxygen 08/12/25 09:04 08/12/25 09:06 08/12/25 09:19 Temperature 97.2 F L 98 F Pulse Rate 72 72 88 Respiratory Rate 19 20 16 Blood Pressure 53/29 L 53/29 L 86/40 L Pulse Oximetry 95 93 100 Oxygen Delivery Oxygen Flow Rate Fraction of Inspired Oxygen 08/12/25 09:30 08/12/25 09:45 08/12/25 09:51 Temperature Pulse Rate 82 85 88 Respiratory Rate Blood Pressure 86/41 L 104/40 L Pulse Oximetry 100 Oxygen Delivery Mechanical Ventilation Oxygen Flow Rate Fraction of Inspired Oxygen 100 08/12/25 10:00 08/12/25 10:00 08/12/25 10:51 Temperature Pulse Rate 88 89 78 Respiratory Rate 15 12 Blood Pressure 120/50 L Pulse Oximetry 100 Oxygen Delivery Oxygen Flow Rate Fraction of Inspired Oxygen 08/12/25 10:51 08/12/25 11:28 08/12/25 11:31 Temperature 97.9 F Pulse Rate 78 81 80 Respiratory Rate 12 24 H Blood Pressure 85/39 L 92/36 L Pulse Oximetry 100 Oxygen Delivery Oxygen Flow Rate Fraction of Inspired Oxygen 08/12/25 11:47 08/12/25 11:51 08/12/25 12:00 Temperature 98.0 F Pulse Rate 81 81 81 Respiratory Rate 25 H 16 Blood Pressure 90/76 L 104/38 L 102/40 L Pulse Oximetry 100 100 Oxygen Delivery Oxygen Flow Rate Fraction of Inspired Oxygen 08/12/25 12:00 08/12/25 12:00 08/12/25 12:00 Temperature Pulse Rate 81 81 81 Respiratory Rate 24 H Blood Pressure 102/40 L Pulse Oximetry Oxygen Delivery Oxygen Flow Rate Fraction of Inspired Oxygen 08/12/25 12:00 08/12/25 12:00 08/12/25 12:19 Temperature Pulse Rate 81 81 80 Respiratory Rate 24 H Blood Pressure 102/40 L 98/60 L Pulse Oximetry Oxygen Delivery Oxygen Flow Rate Fraction of Inspired Oxygen 08/12/25 12:38 08/12/25 12:41 08/12/25 13:02 Temperature 98.1 F Pulse Rate 81 80 79 Respiratory Rate 24 H Blood Pressure 110/34 L 110/34 L 88/67 L Pulse Oximetry 100 Oxygen Delivery Oxygen Flow Rate Fraction of Inspired Oxygen Exam 2 Narrative: General: Yellow skin discoloration, intubated, sedated, significantly ill- appearing female HEENT:? Pupils are equal, sluggish, icteric, ETT in place Neck:? Supple Respiratory:? Coarse breath sounds bilaterally, decreased at bases, no wheezing, adequate air entry Cardiac:? S1-S2 is normal, regular rate and rhythm Abdomen:? Soft, nontender, nondistended, obese, hypoactive bowel sounds Extremities:? Bruising noted bilateral upper and lower extremities, adequate pedal pulses bilateral Neuro:? Patient is intubated, sedated, does not open eyes or follow simple commands, does not withdraw to pain Skin:? Yellow discoloration/jaundice Psych:? Unable to assess at this time Results Labs 08/12/25 07:01 08/12/25 07:03 Labs: Short CBC 08/12/25 Range/Units 07:01 WBC 0.7 L* (4.5-10.0) K/mm3 Hgb 6.3 L* D (12.0-15.0) g/dL Hct 18.9 L* (37.0-47.0) % Plt Count 24 L* D (150-375) k/mm3 BMP 08/12/25 07:03 Sodium 129 L Potassium 4.2 Chloride 94 L Carbon Dioxide 23 BUN 98 H D Creatinine 4.59 H Glucose 154 H Calcium 8.4 Cardiac Enzymes 08/12/25 08/12/25 Range/Units 07:03 10:53 Troponin I 0.060 H* 0.057 H* (0.000-0.034) ng/mL Liver Function 08/12/25 Range/Units 07:03 Total Bilirubin 8.8 H (0.2-1.3) mg/dL AST 73 H (14-36) U/L ALT 46 H (6-35) U/L Alkaline Phosphatase 141 H (38-126) U/L Albumin 2.3 L (3.5-5.1) g/dL Urine 08/12/25 Range/Units 07:15 Urine Color Dark yellow (Yellow) Urine Appearance Turbid H (Clear) Urine pH 5.0 (5.0-9.0) Ur Specific [place] 1.014 (1.001-1.035) Urine Protein 2+ H (Negative) mg/dL Urine Glucose (UA) Negative (Negative) mg/dL Quality VTE Prophylaxis VTE prophylaxis: mechanical ordered Hospitalist MIPS Advance Care Plan I have confirmed that the patient's Advanced Care Plan is present, code status is documented, or surrogate decision maker is listed in patient medical record.: Yes Medication Reconciliation I have utilized all available resources to obtain, update and review the patients current medications (includes all prescriptions, OTC, herbals, cannabis, and nutritional supplements).: Yes
[2025-08-12 13:25] LABS: Total Triiodothyronine (T3) 0.39 NG/ML (0.82-1.58)
[2025-08-12] MEDS: NOREPINEPHRINE 8 MG/D5W 250 ML 8 MG/250 ML BAG 65.63 MG IV CONT (13:56)
[2025-08-12 14:47] LABS: Urine Eos QC 2nd Tech Confirmed
--- NOTE | 2025-08-12 15:18 | WPDPROCEDUR ---
Procedures Intubation Intubation Date: 08/12/25 Intubation Time: 09:30 Consent: Consent obtained from the , agreeable for intubation due to hypoxia, airway protection and improve oxygenation A pre-procedural Time-Out was completed immediately before starting the procedure and confirmed: Patient Identification, Site, Procedure, Patient Position and the Availability of Requisite Equipment: Yes Sedative: etomidate Paralytic: rocuronium Laryngoscope: fiber optic video scope Assist device used: fiber optic device ET tube size: 7.5 Tube secured depth (cm): 23 Tube secured location: lips Tube placement confirmation: visualized tube passing through cords, equal breath sounds bilaterally, no breath sounds over epigastrium and confirmation by capnometry Patient tolerated procedure: well Intubation complications: none
--- NOTE | 2025-08-12 15:19 | WPDPROCEDUR ---
Procedures Central Line Placement Right Femoral: Central Line Date: 08/12/25 Central Line Time: 09:45 Discussed w/ the patient/family/POA,the placement of a central venous catheter, including its clinical necessity/indication & associated potential risks, benifits and alternatives.: Yes The patient/family/POA understand(s) and acknowledge(s) the need to proceed with central venous catheter insertion as an important element of the patient's clinical management.: Yes Consent: I have discussed with the patient and/or surrogate, the non-emergent placement of a central venous catheter, including its clinical necessity/indication and associated potential risks and complications. The patient and/or surrogate understand(s) and acknowledge(s) the need to proceed with central venous catheter insertion as an important element of the patient's clinical management. Time Out Performed: Yes Patient Position: supine Patient placed on monitor/pulse ox: Yes Provider Prep: mask, sterile gown, sterile gloves, Max. sterile barrier precautions, cap and hand hygiene with conventional soap/water or alcohol based hand rub Central line prep: 2% Chlorhexidine scrub Local anesthesia used: lidocaine 1% Amount of anesthesia used (ml): 3 Sterile US Technique with sterile gel/sterile probe covers: Yes Central line lumen inserted: triple Cameroonian: 7 Length (cm): 20 Depth of Insertion (cm): 20 Post Procedure: sutured in place, good blood return, all ports aspirated, flushed, capped, transparent dressing, hemostatic product, antimicrobial product, securement product and aseptic technique maintained throughout procedure Patient tolerated procedure: well Complications: none
--- NOTE | 2025-08-12 15:21 | P.PCNBED_ITS ---
Procedures Arterial Line Arterial Line Date: 08/12/25 Arterial Line Time: 15:21 Discussed with the patient/family/POA, the placement of an arterial catheter, including its clinical necessity/indication and associated potential risks, benefits and alternatives.: Yes Patient/family/POA and/or understands and acknowledges the need to proceed with the arterial catheter insertion as an important element of the patient's clinical management.: Yes Time Out Performed: Yes Patient Position: supine Superintendent Horticulture Prep: sterile gown, sterile gloves, mask and hat Site: right and radial Site Prep: chlorhexidine and sterile drape Skin Anesthesia: 1% lidocaine Technique used: ultrasound-guided Size (Gauge): 14 Length: 4.4 cm Closure/Dressing: suture, transparent dressing, hemostatic product, antimicrobial product and securement product Patient tolerated procedure: well Complications: none
[2025-08-12] MEDS: SODIUM CHLORIDE 0.9% IV 1,000 ML 3 ML IV CONT (15:34)
[2025-08-12 15:35] LABS: Hematocrit 26.9 % (37.0-47.0); Hemoglobin 9.1 g/dL (12.0-15.0); Immature Platelet Fraction Pct 2.2 % (0.9-11.2); Mean Corpuscular HGB Conc 33.8 g/dl (32-36); Mean Corpuscular Hemoglobin 32.6 pg (26-34); Mean Corpuscular Volume 96.4 fl (80-100); Platelet Count Result 127 k/mm3 (150-375); Red Blood Count 2.79 M/mm3 (4.2-5.4)
[2025-08-12 15:45] LABS: INR 2.4; Prothrombin Time 26.1 Seconds (11.1-14.7)
[2025-08-12 15:46] LABS: Creatine Kinase 57 U/L (30-135); Partial Thromboplastin Time 57.5 Seconds (22.3-36.8)
[2025-08-12 15:54] LABS: Alanine Aminotransferase 47 U/L (6-35); Albumin Level 3.3 g/dL (3.5-5.1); Alkaline Phosphatase 103 U/L (38-126); Anion Gap 20 mmol/L (4-12); Aspartate Amino Transferase 71 U/L (14-36); Bilirubin,Total 10.1 mg/dL (0.2-1.3); Blood Urea Nitrogen 90 mg/dL (7-17); Calcium 8.7 mg/dL (8.4-10.2); Carbon Dioxide 14 mmol/L (22-30); Chloride 95 mmol/L (98-107); Estimated CRCL calculation 13 ml/min; Estimated Glomerular Filt Rate 10; Glucose 47 mg/dL (65-110); Magnesium 1.7 mg/dL (1.6-2.3); Potassium 3.8 mmol/L (3.4-5.0); Sodium 129 mmol/L (137-145); Total Protein 6.6 g/dL (6.3-8.2)
[2025-08-12 15:59] LABS: Troponin I 0.052 ng/mL (0.000-0.034); White Blood Count 1.7 K/mm3 (4.5-10.0)
[2025-08-12 16:10] LABS: Band Neutrophils Percent 19 % (0-6); Eosinophils Absolute Manual 0.17 K/mm3 (0.02-0.50); Eosinophils Percent Manual 10 % (0-4); Hypochromasia 1+; Lymphocytes Absolute Manual 0.57 K/mm3 (1.1-4.5); Lymphocytes Percent Manual 34.0 % (18-44); Metamyelocytes Percent 4 %; Neutrophils Absolute Manual 0.88 K/mm3 (1.3-6.7); Neutrophils Percent Manual 33 % (46-73); Schistocytes Rare; Total Cells Counted 100
--- NOTE | 2025-08-12 16:10 | P.CONNP_ITS ---
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 * however, given her hemodynamic instability, she would be best served with CRRT (which is unavaible here at [facility]) * follow trend of repeat labs and UOP (2) Septic shock: Code(s): A41.9 - Sepsis, unspecified organism; R65.21 - Severe sepsis with septic shock Status: Acute Assessment and Plan: * though to be secondary to UTI/pneumonia * complicated by neutropenia * follow culture data * on broad spectrum antibiotics * s/p aggressive IVF resuscitation * on vasopressor support as well * agree with IV albumin for volume expansion * follow trend of hemodynamics (3) Acute respiratory failure: Code(s): J96.00 - Acute respiratory failure, unspecified whether with hypoxia or hypercapnia Status: Acute Assessment and Plan: * intubated in the ICU * noted to be hypoxic and with agonal breathing * remains on ventilator support * weaning once more stable (4) Altered mental status: Code(s): R41.82 - Altered mental status, unspecified Status: Acute Assessment and Plan: * presumably due to hypotension, possible hypoxia/respiratory failure, shock, acute renal failure * CT scan brain with no acute intracranial abnormalities * reassess once off sedation (5) Acute UTI: Code(s): N39.0 - Urinary tract infection, site not specified Status: Acute Assessment and Plan: * admission UA highly suggestive * follow culture data * on antibiotics (6) Anemia: Code(s): D64.9 - Anemia, unspecified Status: Acute Assessment and Plan: * as noted with an admission hemoglobin of 6.3 * 2 units packed RBCs were ordered in the ER and have been transfuse * suspect related to septic shock, liver cirrhosis, bone marrow suppression, GI bleed * continue to monitor and transfuse as required, will maintain hemoglobin > 7.0 (7) Liver cirrhosis: Code(s): K74.60 - Unspecified cirrhosis of liver Status: Acute Assessment and Plan: * known diagnosis * secondary to AYALA * patient was supposed to meet up with [place] liver transplant team this week. * ER physician stated that the patient has been accepted to [facility] and awaiting a bed. * ammonia levels within normal limits with patient is on lactulose at home * daily lactulose while here (8) Coagulopathy: Code(s): D68.9 - Coagulation defect, unspecified Status: Acute Assessment and Plan: * INR of 2.9 an elevated PTT * likely related to liver dysfunction * vitamin K has been ordered * 1 unit of FFP to be given (9) Type 2 diabetes mellitus: Code(s): E11.9 - Type 2 diabetes mellitus without complications Status: Chronic Assessment and Plan: * follow accu-cheks * on SSI * glycemic control per manager culture/hospitalist I will continue to follow the patient with you while she remains hospitalized and make further recommendations as deemed necessary. Thank you for allowing me to participate in the care of this patient. L History of Present Illness Reason for Consult Consult date: 08/12/25 Reason for consult: acute renal failure (on chronic kidney disease) Chief Complaint Chief complaint: Sepsis / liver failure / renal failure History of Present Illness Narrative: The patient is a 64 year old female with significant past medical history as outlined below who presented to [facility] Emergency Room from her nursing facility a local [facility] facility with hypoglycemia, altered mental status and hypotension. Almost all the information I have obtained is from review of the electronic medical record as well as discussion with the physician / nurses involved in the patient's care as the patient is intubated and on mechanical ventilation and unable to provide any history. The specifics of how long/the duration of her hypoglycemia, altered mentation, and low blood pressure is not entirely clear prior to her presentation to the ER. Her blood sugars improved with use of D10 IV pushes but her mental status remained quite poor. The patient received 2 L IV fluid bolus in effort to optimize her hemodynamics but she had a fairly poor response to this intervention. subsequent testing in the emergency room was notable for a white blood cell count of 0.7, hemoglobin 6.3, platelet count of 24, sodium 129, potassium 4.2, bicarb 23, BUN 98, creatinine 4.59, glucose 154, INR of 2.9, elevated liver function tests, albumin of 2.3, lipase of 12, and a troponin of 0.060 followed by a reading of 0.057. Her urinalysis was highly suggestive of urinary tract infection as well. Viral testing for influenza, RSV, and COVID were negative. Her chest x-ray showed a small right pleural effusion, small to moderate size left pleural effusion and patchy consolidation in the left lung most prominent in the left lower lobe along with interstitial and airspace opacities scattered throughout both lungs. Subsequent CT scan of the chest abdomen pelvis demonstrated pulmonary vascular congestion with small bilateral pleural effusions, liver cirrhosis with splenomegaly and plan minutes Asbiha no renal collateral consistent with secondary portal hyper per tension along with bilateral nephrolithiasis without hydronephrosis and proximal colon wall thickening as well as extensive body wall, mesenteric, and retroperitoneal edema with a small amount of ascites. The tentative plan was for the patient be transferred to [facility] ICU but there were no beds available so she was subsequently transferred up to the intensive care unit here at [facility] for further evaluation and therapy. Since her arrival to the in ICU, the patient was intubated for airway protection and subsequently had a central line placed for vasopressor therapy and transfusion of blood products along with a arterial line for better hemodynamic monitoring. Levophed was maxed out and had to be initiated on vasopressin as well as phenylephrine for blood pressure support. Her lactic acid has worsened up to 6.3 from an initial reading of 5.0. Renal consultation was requested due to her acute kidney injury/acute renal failure. From review her records, it would seem the patient has some mild degree of renal insufficiency at baseline although her creatinine does fluctuate anywhere from 0.8-1.2 mg/dL. Prior to these labs in the last few months, her creatinine was well within normal limits with a GFR that was consistently greater than 60 cc/minute. As noted by her admission labs, she has suffered a significant insult to her kidneys although she does not have any critical electrolyte abnormalities at this time but her fluid/volume status is of concern given the imaging findings as mention. Obviously, diuretic therapy is not likely to be instituted given her hemodynamic instability and my biggest concern is that she will require renal replacement therapy/dialysis. Unfortunately, her hemodynamic instability limits what therapeutic options we have available here at [facility] as she would best be served by continuous renal replacement therapy if dialysis is needed but this is not available here at [facility]. Currently, the patient is intubated/ sedated and mechanical ventilation requiring significant vasopressor support at the time of my visit. Review of Systems 2 Review of Systems: As per HPI. [facility] Past Medical History Medical History Thrombocytopenia Liver cirrhosis Social History Social History Smoking status: Never smoker Second hand tobacco smoke exposure: No Alcohol intake: never Substance use: never Substance use type: does not use Do You Feel Safe in your Home?: Yes Lack of Transportation: No Lack of Food: Never True Current Housing: I Have Housing Concerned About Future Housing: No Difficulty Paying Gas/Electric Bills: No Difficulty Paying for Meds: No Currently Unemployed: No Education: Bachelor's Degree Difficulty w/ Childcare or Family Care: No Spiritual care concerns: Yes Meds Home Medications and Allergies Home Medications ?Medication ?Instructions ?Recorded ?Confirmed ?Type acetaminophen 500 mg tablet 500 mg PO BID PRN Mild Jewel n (1-3) 04/12/25 08/12/25 Rx Or Fever #0 tabs lactulose 10 gram/15 mL oral 20 g (30 mL) PO 5 TIMES D AILY #0 mL 04/12/25 08/12/25 Rx solution bumetanide 1 mg tablet 1 mg PO BID 08/12/25 5 History calcium carbonate 1,250 mg PO DAILY 08/12/25 0 08/12/25 History carvedilol 3.125 mg tablet 3.125 mg PO Q12H 08/12/25 0 08/12/25 History ergocalciferol (vitamin D2) 1,250 1,250 mcg PO WEEKLY 08/12/25 08/12/25 History mcg (50,000 unit) capsule famotidine 20 mg tablet 20 mg PO DAILY 08/12/2508/02 History insulin glargine 100 unit/mL (3 18 unit subcut HS 08/0208/12/25 History mL) subcutaneous pen (Lantus Solostar U-100 Insulin) ondansetron 4 mg disintegrating 4 mg translingual Q6H PRN nausea 08/12/25 08/12/25 History tablet and vomiting Allergies Allergy/AdvReac Type Severity Reaction Status Date / Time morphine Allergy Rash Verified 03/29/25 18:48 peanut Allergy Rash Verified 03/29/25 18:48 tree nut Allergy Rash Verified 03/29/25 18:48 oxycodone AdvReac Nausea Verified 03/29/25 18:48 prednisone AdvReac Unknown Verified 03/29/25 18:48 Vital Signs Vital Signs Temp Pulse Resp BP Pulse Ox O2 Del Method O2 Flow Rate 08/12/25 16:00 73 116/44 L 08/12/25 16:00 100 Mechanical Ventilation 08/12/25 14:55 87 92 Mechanical Ventilation 08/12/25 14:20 97.5 F L 77 24 H 95/36 L 100 08/12/25 14:00 77 24 H 08/12/25 14:00 77 24 H 08/12/25 14:00 77 106/33 L 08/12/25 14:00 77 08/12/25 13:58 77 113/40 L 08/12/25 13:56 77 121/45 L 08/12/25 13:27 77 121/45 L 08/12/25 13:24 98.0 F 77 24 H 121/45 L 100 08/12/25 13:19 98.0 F 79 24 H 121/45 L 100 08/12/25 13:02 79 88/67 L 08/12/25 12:41 80 110/34 L 08/12/25 12:38 98.1 F 81 24 H 110/34 L 100 08/12/25 12:30 88 100 Mechanical Ventilation 08/12/25 12:19 80 98/60 L 08/12/25 12:00 100 Mechanical Ventilation 08/12/25 12:00 81 102/40 L 08/12/25 12:00 81 24 H 08/12/25 12:00 81 24 H 08/12/25 12:00 81 102/40 L 08/12/25 12:00 81 08/12/25 12:00 81 16 102/40 L 100 08/12/25 11:51 81 104/38 L 08/12/25 11:47 98.0 F 81 25 H 90/76 L 100 08/12/25 11:31 97.9 F 80 24 H 92/36 L 100 08/12/25 11:28 81 85/39 L 08/12/25 10:51 78 12 08/12/25 10:51 78 12 08/12/25 10:00 89 08/12/25 10:00 88 15 120/50 L 100 08/12/25 09:51 88 100 Mechanical Ventilation 08/12/25 09:45 85 104/40 L 08/12/25 09:30 82 86/41 L 08/12/25 09:19 98 F 88 16 86/40 L 100 08/12/25 09:06 72 20 53/29 L 93 08/12/25 09:04 97.2 F L 72 19 53/29 L 95 08/12/25 08:41 72 59/36 L 08/12/25 08:30 74 20 80/27 L 95 08/12/25 08:10 93 Nasal Cannula 4 08/12/25 08:08 75 20 90/35 L 95 08/12/25 07:54 76 20 63/35 L 93 08/12/25 07:30 72 76/43 L 08/12/25 07:27 74 08/12/25 07:23 98 F 74 24 H 80/25 L 94 08/12/25 06:38 97.9 F 74 19 91/35 L 92 Nasal Cannula 4 Exam 2 Narrative: GENERAL APPEARANCE: quite ill-appearing and jaundiced female intubated/sedated and on mechanical ventilation HEENT: normocephalic, atraumatic, normal conjunctiva and sclera, nares patient NECK: no lymphadenopathy, thyromegaly, or JVD MOUTH: normal lips, teeth, and gums; ETT in place CARDIOVASCULAR: RRR, normal S1 and S2, no rub RESPIRATORY: coarse breath sounds bilaterally ABDOMEN: obese but soft, nontender, nondistended, diminished bowel sounds EXTREMITIES: no evidence of cyanosis, clubbing, or edema; bilateral UE/LE bruising noted NEUROLOGICAL: unable to assess Results Lab Results 08/12/25 15:18 08/12/25 15:18 Lab results: Most recent lab results ABG pH 7.364 (7.350-7.450) 08/12/25 11:40 ABG pCO2 33.9 mmHg (35.0-45.0) L 08/12/25 11:40 ABG pO2 346.7 mmHg (80.0-100.0) H 08/12/25 11:40 ABG HCO3 18.9 mEq/l (22.0-26.0) L 08/12/25 11:40 ABG O2 Saturation 99.8 % (95.0-100.0) 08/12/25 11:40 Calcium 8.7 mg/dL (8.4-10.2) 08/12/25 15:18 Phosphorus 5.2 mg/dL (2.5-4.5) H 08/12/25 15:18 Magnesium 1.7 mg/dL (1.6-2.3) 08/12/25 15:18 Urine Creatinine 78.0 mg/dL 08/12/25 14:05
[2025-08-12 16:11] LABS: Acanthocytes Occasional; Anisocytosis 1+; Burr Cells 1+
[2025-08-12] MEDS: DEXTROSE 50% 25 GM/50 ML SYRINGE IV PUSH (16:38)
[2025-08-12 17:10] LABS: Ammonia 57 umol/L (9-30)
[2025-08-12] MEDS: DEXTROSE 10% 1,000 ML 50 ML IV CONT (17:28)
[2025-08-12] MEDS: PHENYLEPHRINE HCL INJ 50 MG in SODIUM CHLORIDE 0.9% IV 245 ML 39 ML IV CONT (18:02)
[2025-08-12] MEDS: NOREPINEPHRINE 8 MG/D5W 250 ML 8 MG/250 ML BAG 56.25 MG IV CONT ×2 (18:07→22:39)
--- NOTE | 2025-08-12 19:55 | PM.CNGS ---
Assessment and Plan Assessment and plan (1) Septic shock: Code(s): A41.9 - Sepsis, unspecified organism; R65.21 - Severe sepsis with septic shock Status: Acute Assessment and Plan: patient's prognosis is grim. Patient's understands this. She has developed multi system organ failure facilitated by her significant chronic illnesses including cirrhosis. (2) Acute lactic acidosis: Code(s): E87.21 - Acute metabolic acidosis Status: Acute Assessment and Plan: Patient's lactate is rising rapidly and this could be due to bowel ischemia and infarction. Unfortunately, she is not a surgical candidate due to her multiple other conditions particularly septic shock and coagulopathy. Bowel ischemia in this situation would be due to a low-flow state rather than obstruction or mesenteric infarction. It is difficult to tell if the rise in lactate is from bowel ischemia or from her severe state of shock. I discussed the reasons that I would not advocate surgery with her . He understands and agrees. (3) Acute respiratory failure: Code(s): J96.00 - Acute respiratory failure, unspecified whether with hypoxia or hypercapnia Status: Acute (4) Acute renal failure: Code(s): N17.9 - Acute kidney failure, unspecified Status: Acute (5) Fulminant liver failure: Code(s): K72.90 - Hepatic failure, unspecified without coma Status: Acute (6) Pancytopenia: Code(s): D61.818 - Other pancytopenia Status: Acute History of Present Illness Consult details Consult date: 08/12/25 Reason for consult: other (Hypotension, lactic acidosis) Requesting physician: Kale Hoyos MD Narrative: patient is a 64-year-old woman who came to the emergency room this morning with hypotension low blood sugar and altered mental status. She was recognized almost immediately as being critically ill with sepsis and acute respiratory failure. She was intubated and started on antibiotics. She was transferred to the intensive care unit. Initial findings suggest urinary tract infection as the cause of her septic condition. Patient is known to have cirrhosis due to fatty liver disease. She was seriously ill at [facility] a few months ago due to hepatics failure. She currently has a paddle renal failure and is in the intensive care unit, intubated and sedated, on multiple vasopressors. She has had a rapid rise in her serum lactate and I was asked to see her regarding the potential for ischemic bowel. Patient is sedated or coma toes, non responsive. I did speak with her and have reviewed the records thoroughly. patient is DNR status Review of Systems Review of Systems: ROS unobtainable: Yes unobtainable due to medical condition PMFSH Past Medical History Medical History Thrombocytopenia Liver cirrhosis Social History Social History Smoking status: Never smoker Second hand tobacco smoke exposure: No Alcohol intake: never Substance use: never Substance use type: does not use Do You Feel Safe in your Home?: Yes Lack of Transportation: No Lack of Food: Never True Current Housing: I Have Housing Concerned About Future Housing: No Difficulty Paying Gas/Electric Bills: No Difficulty Paying for Meds: No Currently Unemployed: No Education: Bachelor's Degree Difficulty w/ Childcare or Family Care: No Spiritual care concerns: Yes Meds Home Medications and Allergies Home Medications ?Medication ?Instructions ?Recorded ?Confirmed ?Type acetaminophen 500 mg tablet 500 mg PO BID PRN Mild Pain (1-3) 04/12/25 08/12/25 Rx Or Fever #0 tabs lactulose 10 gram/15 mL oral 20 g (30 mL) PO 5 TIMES DAILY #0 mL 04/12/25 08/12/25 Rx solution bumetanide 1 mg tablet 1 mg PO BID 08/12/25 08/12/25 History calcium carbonate 1,250 mg PO DAILY 08/12/25 08/12/25 History carvedilol 3.125 mg tablet 3.125 mg PO Q12H 08/12/25 08/12/25 History ergocalciferol (vitamin D2) 1,250 1,250 mcg PO WEEKLY 08/12/25 08/12/25 History mcg (50,000 unit) capsule famotidine 20 mg tablet 20 mg PO DAILY 08/12/25 08/12/25 History insulin glargine 100 unit/mL (3 18 unit subcut HS 08/12/25 08/12/25 History mL) subcutaneous pen (Lantus Solostar U-100 Insulin) ondansetron 4 mg disintegrating 4 mg translingual Q6H PRN nausea 08/12/25 08/12/25 History tablet and vomiting Allergies Allergy/AdvReac Type Severity Reaction Status Date / Time morphine Allergy Rash Verified 03/29/25 18:48 peanut Allergy Rash Verified 03/29/25 18:48 tree nut Allergy Rash Verified 03/29/25 18:48 oxycodone AdvReac Nausea Verified 03/29/25 18:48 prednisone AdvReac Unknown Verified 03/29/25 18:48 Vital Signs Vital Signs - 24 hr 08/12/25 06:38 08/12/25 07:23 08/12/25 07:27 Temperature 36.6 C 36.6 C Pulse Rate 74 74 74 Respiratory Rate 19 24 H Blood Pressure 91/35 L 80/25 L Pulse Oximetry 92 94 Oxygen Delivery Nasal Cannula Oxygen Flow Rate 4 Fraction of Inspired Oxygen 08/12/25 07:30 08/12/25 07:54 08/12/25 08:08 Temperature Pulse Rate 72 76 75 Respiratory Rate 20 20 Blood Pressure 76/43 L 63/35 L 90/35 L Pulse Oximetry 93 95 Oxygen Delivery Oxygen Flow Rate Fraction of Inspired Oxygen 08/12/25 08:10 08/12/25 08:30 08/12/25 08:41 Temperature Pulse Rate 74 72 Respiratory Rate 20 Blood Pressure 80/27 L 59/36 L Pulse Oximetry 93 95 Oxygen Delivery Nasal Cannula Oxygen Flow Rate 4 Fraction of Inspired Oxygen 08/12/25 09:04 08/12/25 09:06 08/12/25 09:19 Temperature 36.2 C L 36.6 C Pulse Rate 72 72 88 Respiratory Rate 19 20 16 Blood Pressure 53/29 L 53/29 L 86/40 L Pulse Oximetry 95 93 100 Oxygen Delivery Oxygen Flow Rate Fraction of Inspired Oxygen 08/12/25 09:30 08/12/25 09:45 08/12/25 09:51 Temperature Pulse Rate 82 85 88 Respiratory Rate Blood Pressure 86/41 L 104/40 L Pulse Oximetry 100 Oxygen Delivery Mechanical Ventilation Oxygen Flow Rate Fraction of Inspired Oxygen 100 08/12/25 10:00 08/12/25 10:00 08/12/25 10:51 Temperature Pulse Rate 88 89 78 Respiratory Rate 15 12 Blood Pressure 120/50 L Pulse Oximetry 100 Oxygen Delivery Oxygen Flow Rate Fraction of Inspired Oxygen 08/12/25 10:51 08/12/25 11:28 08/12/25 11:31 Temperature 36.6 C Pulse Rate 78 81 80 Respiratory Rate 12 24 H Blood Pressure 85/39 L 92/36 L Pulse Oximetry 100 Oxygen Delivery Oxygen Flow Rate Fraction of Inspired Oxygen 08/12/25 11:47 08/12/25 11:51 08/12/25 12:00 Temperature 36.7 C Pulse Rate 81 81 81 Respiratory Rate 25 H 16 Blood Pressure 90/76 L 104/38 L 102/40 L Pulse Oximetry 100 100 Oxygen Delivery Oxygen Flow Rate Fraction of Inspired Oxygen 08/12/25 12:00 08/12/25 12:00 08/12/25 12:00 Temperature Pulse Rate 81 81 81 Respiratory Rate 24 H Blood Pressure 102/40 L Pulse Oximetry Oxygen Delivery Oxygen Flow Rate Fraction of Inspired Oxygen 08/12/25 12:00 08/12/25 12:00 08/12/25 12:00 Temperature Pulse Rate 81 81 Respiratory Rate 24 H Blood Pressure 102/40 L Pulse Oximetry 100 Oxygen Delivery Mechanical Ventilation Oxygen Flow Rate Fraction of Inspired Oxygen 50 08/12/25 12:19 08/12/25 12:30 08/12/25 12:38 Temperature 36.7 C Pulse Rate 80 88 81 Respiratory Rate 24 H Blood Pressure 98/60 L 110/34 L Pulse Oximetry 100 100 Oxygen Delivery Mechanical Ventilation Oxygen Flow Rate Fraction of Inspired Oxygen 50 08/12/25 12:41 08/12/25 13:02 08/12/25 13:19 Temperature 36.7 C Pulse Rate 80 79 79 Respiratory Rate 24 H Blood Pressure 110/34 L 88/67 L 121/45 L Pulse Oximetry 100 Oxygen Delivery Oxygen Flow Rate Fraction of Inspired Oxygen 08/12/25 13:24 08/12/25 13:27 08/12/25 13:56 Temperature 36.7 C Pulse Rate 77 77 77 Respiratory Rate 24 H Blood Pressure 121/45 L 121/45 L 121/45 L Pulse Oximetry 100 Oxygen Delivery Oxygen Flow Rate Fraction of Inspired Oxygen 08/12/25 13:58 08/12/25 14:00 08/12/25 14:00 Temperature Pulse Rate 77 77 77 Respiratory Rate Blood Pressure 113/40 L 106/33 L Pulse Oximetry Oxygen Delivery Oxygen Flow Rate Fraction of Inspired Oxygen 08/12/25 14:00 08/12/25 14:00 08/12/25 14:20 Temperature 36.4 C L Pulse Rate 77 77 77 Respiratory Rate 24 H 24 H 24 H Blood Pressure 95/36 L Pulse Oximetry 100 Oxygen Delivery Oxygen Flow Rate Fraction of Inspired Oxygen 08/12/25 14:55 08/12/25 16:00 08/12/25 16:00 Temperature Pulse Rate 87 73 Respiratory Rate Blood Pressure 116/44 L Pulse Oximetry 92 100 Oxygen Delivery Mechanical Ventilation Mechanical Ventilation Oxygen Flow Rate Fraction of Inspired Oxygen 50 50 08/12/25 16:00 08/12/25 16:00 08/12/25 16:00 Temperature Pulse Rate 73 73 73 Respiratory Rate 24 H Blood Pressure 116/44 L 116/44 L Pulse Oximetry Oxygen Delivery Oxygen Flow Rate Fraction of Inspired Oxygen 08/12/25 16:00 08/12/25 16:00 08/12/25 16:00 Temperature Pulse Rate 73 70 Respiratory Rate 24 H Blood Pressure Pulse Oximetry Oxygen Delivery Oxygen Flow Rate Fraction of Inspired Oxygen 50 08/12/25 17:51 08/12/25 17:52 08/12/25 18:00 Temperature Pulse Rate 73 77 75 Respiratory Rate 24 H 24 H Blood Pressure Pulse Oximetry Oxygen Delivery Oxygen Flow Rate Fraction of Inspired Oxygen 08/12/25 18:02 08/12/25 18:02 08/12/25 18:07 Temperature Pulse Rate 75 75 74 Respiratory Rate Blood Pressure 121/45 L 121/45 L 123/46 L Pulse Oximetry Oxygen Delivery Oxygen Flow Rate Fraction of Inspired Oxygen 08/12/25 18:07 08/12/25 18:30 08/12/25 19:00 Temperature Pulse Rate 74 75 96 Respiratory Rate 22 H Blood Pressure 123/46 L 109/41 L 110/79 Pulse Oximetry 95 Oxygen Delivery Oxygen Flow Rate Fraction of Inspired Oxygen Exam Const: General: patient obtunded Nutritional Appearance: overweight Orientation/consciousness: patient obtunded GI: Inspection: non-distended and obesity GI Palp: Yes Soft to palpation and No Tenderness to palpation present (GI) Results Labs 08/12/25 15:18 08/12/25 15:18 Labs: Abnormal lab results 08/12/25 08/12/25 08/12/25 Range/Units 07:01 07:03 07:05 WBC 0.7 L* (4.5-10.0) K/mm3 RBC 1.87 L (4.2-5.4) M/mm3 Hgb 6.3 L* D (12.0-15.0) g/dL Hct 18.9 L* (37.0-47.0) % MCV 101.1 H (80-100) fl RDW 20.2 H (11.5-14.5) % Plt Count 24 L* D (150-375) k/mm3 MPV 11.5 H (7.4-10.4) fl Neut % (Auto) 74.7 H (45.5-73.1) % Baso % (Auto) 0.0 L (0.2-1.2) % Lymph # (Auto) 0.15 L (0.9-3.2) K/mm3 [place] # (Auto) 0.0 L (0.1-0.6) K/mm3 Absolute Neuts (auto) 0.5 L (1.3-6.7) K/mm3 Neutrophils % (Manual) 45 L (46-73) % Band Neutrophils % 25 H (0-6) % Eosinophils % (Manual) (0-4) % Abs Neuts (Manual) 0.49 L* (1.3-6.7) K/mm3 Abs Lymphs (Manual) 0.21 L (1.1-4.5) K/mm3 PT 29.5 H (11.1-14.7) Seconds APTT 53.3 H (22.3-36.8) Seconds ABG pH (7.350-7.450) ABG pCO2 (35.0-45.0) mmHg ABG pO2 (80.0-100.0) mmHg ABG HCO3 (22.0-26.0) mEq/l ABG O2 Saturation (95.0-100.0) % ABG O2 Content (16.0-22.0) %vol VBG pCO2 39.2 L (42.0-48.0) mmHg VBG pO2 98.3 H (35.0-45.0) mmHg VBG HCO3 21.9 L (24.0-30.0) mEq/l Oxyhemoglobin (90.0-100.0) % THb Total Hemoglobin (12.0-18.0) g/dL Sodium 129 L (137-145) mmol/L Chloride 94 L (98-107) mmol/L Carbon Dioxide (22-30) mmol/L Anion Gap (4-12) mmol/L BUN 98 H D (7-17) mg/dL Creatinine 4.59 H (0.7-1.0) mg/dL Estimated GFR 10 L (59 - ) Glucose 154 H (65-110) mg/dL Lactic Acid 5.0 H* (0.7-2.0) mmol/L Phosphorus 5.2 H (2.5-4.5) mg/dL Total Bilirubin 8.8 H (0.2-1.3) mg/dL AST 73 H (14-36) U/L ALT 46 H (6-35) U/L Alkaline Phosphatase 141 H (38-126) U/L Ammonia (9-30) umol/L Troponin I 0.060 H* (0.000-0.034) ng/mL Total Protein 5.5 L (6.3-8.2) g/dL Albumin 2.3 L (3.5-5.1) g/dL Lipase 12 L (23-300) U/L TSH (Reflex) 9.630 H (0.465-4.68) uIU/mL Total T3 0.39 L (0.82-1.58) NG/ML Urine Appearance (Clear) Urine Protein (Negative) mg/dL Urine Ketones (Negative) mg/dL Ur Blood (Man) (Negative) Urine Bilirubin (Negative) Leukocyte Esterase Rfl (Negative) ZEN/UL Urine RBC (0-2) /hpf Urine WBC (0-3) /hpf Urine Bacteria /hpf Urine Yeast (Budding) (None) /hpf Crossmatch See Detail 08/12/25 08/12/25 08/12/25 Range/Units 07:15 10:09 10:53 WBC (4.5-10.0) K/mm3 RBC (4.2-5.4) M/mm3 Hgb (12.0-15.0) g/dL Hct (37.0-47.0) % MCV (80-100) fl RDW (11.5-14.5) % Plt Count (150-375) k/mm3 MPV (7.4-10.4) fl Neut % (Auto) (45.5-73.1) % Baso % (Auto) (0.2-1.2) % Lymph # (Auto) (0.9-3.2) K/mm3 [place] # (Auto) (0.1-0.6) K/mm3 Absolute Neuts (auto) (1.3-6.7) K/mm3 Neutrophils % (Manual) (46-73) % Band Neutrophils % (0-6) % Eosinophils % (Manual) (0-4) % Abs Neuts (Manual) (1.3-6.7) K/mm3 Abs Lymphs (Manual) (1.1-4.5) K/mm3 PT (11.1-14.7) Seconds APTT (22.3-36.8) Seconds ABG pH 7.240 L* (7.350-7.450) ABG pCO2 52.7 H (35.0-45.0) mmHg ABG pO2 70.6 L (80.0-100.0) mmHg ABG HCO3 (22.0-26.0) mEq/l ABG O2 Saturation 91.1 L (95.0-100.0) % ABG O2 Content 11.1 L (16.0-22.0) %vol VBG pCO2 (42.0-48.0) mmHg VBG pO2 (35.0-45.0) mmHg VBG HCO3 (24.0-30.0) mEq/l Oxyhemoglobin 88.9 L (90.0-100.0) % THb Total Hemoglobin 8.8 L (12.0-18.0) g/dL Sodium (137-145) mmol/L Chloride (98-107) mmol/L Carbon Dioxide (22-30) mmol/L Anion Gap (4-12) mmol/L BUN (7-17) mg/dL Creatinine (0.7-1.0) mg/dL Estimated GFR (59 - ) Glucose (65-110) mg/dL Lactic Acid 6.3 H* (0.7-2.0) mmol/L Phosphorus (2.5-4.5) mg/dL Total Bilirubin (0.2-1.3) mg/dL AST (14-36) U/L ALT (6-35) U/L Alkaline Phosphatase (38-126) U/L Ammonia (9-30) umol/L Troponin I 0.057 H* (0.000-0.034) ng/mL Total Protein (6.3-8.2) g/dL Albumin (3.5-5.1) g/dL Lipase (23-300) U/L TSH (Reflex) (0.465-4.68) uIU/mL Total T3 (0.82-1.58) NG/ML Urine Appearance Turbid H (Clear) Urine Protein 2+ H (Negative) mg/dL Urine Ketones Trace H (Negative) mg/dL Ur Blood (Man) 3+ H (Negative) Urine Bilirubin 1+ H (Negative) Leukocyte Esterase Rfl 3+ H (Negative) ZEN/UL Urine RBC >100 H (0-2) /hpf Urine WBC >100 H (0-3) /hpf Urine Bacteria 2+ H /hpf Urine Yeast (Budding) Present H (None) /hpf Crossmatch 08/12/25 08/12/25 Range/Units 11:40 15:18 WBC 1.7 L* (4.5-10.0) K/mm3 RBC 2.79 L (4.2-5.4) M/mm3 Hgb 9.1 L (12.0-15.0) g/dL Hct 26.9 L (37.0-47.0) % MCV (80-100) fl RDW 19.8 H (11.5-14.5) % Plt Count 127 L D (150-375) k/mm3 MPV (7.4-10.4) fl Neut % (Auto) (45.5-73.1) % Baso % (Auto) (0.2-1.2) % Lymph # (Auto) (0.9-3.2) K/mm3 [place] # (Auto) (0.1-0.6) K/mm3 Absolute Neuts (auto) (1.3-6.7) K/mm3 Neutrophils % (Manual) 33 L (46-73) % Band Neutrophils % 19 H (0-6) % Eosinophils % (Manual) 10 H (0-4) % Abs Neuts (Manual) 0.88 L (1.3-6.7) K/mm3 Abs Lymphs (Manual) 0.57 L (1.1-4.5) K/mm3 PT 26.1 H (11.1-14.7) Seconds APTT 57.5 H (22.3-36.8) Seconds ABG pH (7.350-7.450) ABG pCO2 33.9 L (35.0-45.0) mmHg ABG pO2 346.7 H (80.0-100.0) mmHg ABG HCO3 18.9 L (22.0-26.0) mEq/l ABG O2 Saturation (95.0-100.0) % ABG O2 Content 13.5 L (16.0-22.0) %vol VBG pCO2 (42.0-48.0) mmHg VBG pO2 (35.0-45.0) mmHg VBG HCO3 (24.0-30.0) mEq/l Oxyhemoglobin (90.0-100.0) % THb Total Hemoglobin 9.1 L (12.0-18.0) g/dL Sodium 129 L (137-145) mmol/L Chloride 95 L (98-107) mmol/L Carbon Dioxide 14 L (22-30) mmol/L Anion Gap 20 H (4-12) mmol/L BUN 90 H (7-17) mg/dL Creatinine 4.55 H (0.7-1.0) mg/dL Estimated GFR 10 L (59 - ) Glucose 47 L* (65-110) mg/dL Lactic Acid 9.3 H* (0.7-2.0) mmol/L Phosphorus 5.2 H (2.5-4.5) mg/dL Total Bilirubin 10.1 H (0.2-1.3) mg/dL AST 71 H (14-36) U/L ALT 47 H (6-35) U/L Alkaline Phosphatase (38-126) U/L Ammonia 57 H (9-30) umol/L Troponin I 0.052 H* (0.000-0.034) ng/mL Total Protein (6.3-8.2) g/dL Albumin 3.3 L (3.5-5.1) g/dL Lipase (23-300) U/L TSH (Reflex) (0.465-4.68) uIU/mL Total T3 (0.82-1.58) NG/ML Urine Appearance (Clear) Urine Protein (Negative) mg/dL Urine Ketones (Negative) mg/dL Ur Blood (Man) (Negative) Urine Bilirubin (Negative) Leukocyte Esterase Rfl (Negative) ZEN/UL Urine RBC (0-2) /hpf Urine WBC (0-3) /hpf Urine Bacteria /hpf Urine Yeast (Budding) (None) /hpf Crossmatch Diabetes panel 08/12/25 08/12/25 Range/Units 07:03 15:18 Sodium 129 L 129 L (137-145) mmol/L Potassium 4.2 3.8 (3.4-5.0) mmol/L Chloride 94 L 95 L (98-107) mmol/L Carbon Dioxide 23 14 L (22-30) mmol/L BUN 98 H D 90 H (7-17) mg/dL Creatinine 4.59 H 4.55 H (0.7-1.0) mg/dL Glucose 154 H 47 L* (65-110) mg/dL Calcium 8.4 8.7 (8.4-10.2) mg/dL AST 73 H 71 H (14-36) U/L ALT 46 H 47 H (6-35) U/L Alkaline Phosphatase 141 H 103 (38-126) U/L Total Protein 5.5 L 6.6 (6.3-8.2) g/dL Albumin 2.3 L 3.3 L (3.5-5.1) g/dL Calcium panel 08/12/25 08/12/25 Range/Units 07:03 15:18 Calcium 8.4 8.7 (8.4-10.2) mg/dL Phosphorus 5.2 H 5.2 H (2.5-4.5) mg/dL Albumin 2.3 L 3.3 L (3.5-5.1) g/dL Pituitary panel 08/12/25 08/12/25 08/12/25 Range/Units 07:01 07:03 15:18 Sodium 129 L 129 L (137-145) mmol/L Potassium 4.2 3.8 (3.4-5.0) mmol/L Chloride 94 L 95 L (98-107) mmol/L Carbon Dioxide 23 14 L (22-30) mmol/L BUN 98 H D 90 H (7-17) mg/dL Creatinine 4.59 H 4.55 H (0.7-1.0) mg/dL Glucose 154 H 47 L* (65-110) mg/dL Calcium 8.4 8.7 (8.4-10.2) mg/dL Total T3 0.39 L (0.82-1.58) NG/ML Adrenal panel 08/12/25 08/12/25 Range/Units 07:03 15:18 Sodium 129 L 129 L (137-145) mmol/L Potassium 4.2 3.8 (3.4-5.0) mmol/L Chloride 94 L 95 L (98-107) mmol/L Carbon Dioxide 23 14 L (22-30) mmol/L BUN 98 H D 90 H (7-17) mg/dL Creatinine 4.59 H 4.55 H (0.7-1.0) mg/dL Glucose 154 H 47 L* (65-110) mg/dL Calcium 8.4 8.7 (8.4-10.2) mg/dL Total Bilirubin 8.8 H 10.1 H (0.2-1.3) mg/dL AST 73 H 71 H (14-36) U/L ALT 46 H 47 H (6-35) U/L Alkaline Phosphatase 141 H 103 (38-126) U/L Total Protein 5.5 L 6.6 (6.3-8.2) g/dL Albumin 2.3 L 3.3 L (3.5-5.1) g/dL All other labs normal.
--- NOTE | 2025-08-12 22:03 | WPDGICN ---
Assessment and Plan Assessment and plan (1) Acute on chronic liver failure: Code(s): K72.00 - Acute and subacute hepatic failure without coma; K72.10 - Chronic hepatic failure without coma Status: Acute Assessment and Plan: Based on the ACLF-SHAAN and NACSELD scores, this patient with pre-existing cirrhosis faces a grim prognosis due to multi-organ failure. Her high ACLF-SHAAN score of 56 (ACLF-3) is particularly concerning, as it factors in her liver, kidney, brain, coagulation, circulatory, and respiratory scores, in addition to her white blood cell count and age. The calculated NACSELD score of 4 further supports the severity of her condition. While these scores can change and her outcome depends on her response to the urosepsis, the chances of recovering from such severe multi-organ failure are low. Therefore, the medical team should carefully discuss the option of comfort measures with the family while continuing her current intensive treatment. GI Consult Note Consult date/time: 08/12/25 22:03 Reason for consult: Liver failure ([id number], ACLF) HPI: Makenna Wilson is a 64 year old female Patient with MASH related cirrhosis, being evaluated for a possible Liver transplantation at [facility]. She was admitted today with severe altered mental status, circulatory and renal failure, being currently intubated in the ICU. Comorbidities include DM , HTM, A fib. She is currently in septic shock from a UTI, sith neutropenia and receiving 3 vasopressors at maximum doses, trated with Cefepime, Azythromycin and Vancomycin. Relevant labs include: WBC 0.7, Hb 6.3, Platelets 24 K, INR 2.4, Creatinine 4.55, Bb 10.1, Albumin 3.3. Her lactic acid has been increasing despite volume resuscitation with cristaloids and albumin (last checked 11.8). Review of Systems Review of Systems: All systems reviewed & are unremarkable except as noted in HPI and below PMFSH Past Medical History Medical History Thrombocytopenia Liver cirrhosis Social History Social History Smoking status: Never smoker Second hand tobacco smoke exposure: No Alcohol intake: never Substance use: never Substance use type: does not use Do You Feel Safe in your Home?: Yes Lack of Transportation: No Lack of Food: Never True Current Housing: I Have Housing Concerned About Future Housing: No Difficulty Paying Gas/Electric Bills: No Difficulty Paying for Meds: No Currently Unemployed: No Education: Bachelor's Degree Difficulty w/ Childcare or Family Care: No Spiritual care concerns: Yes Meds Home Medications and Allergies Home Medications ?Medication ?Instructions ?Recorded ?Confirmed ?Type acetaminophen 500 mg tablet 500 mg PO BID PRN Mild Pain (1-3) 04/12/25 08/12/25 Rx Or Fever #0 tabs lactulose 10 gram/15 mL oral 20 g (30 mL) PO 5 TIMES DAILY #0 mL 04/12/25 08/12/25 Rx solution bumetanide 1 mg tablet 1 mg PO BID 08/12/25 08/12/25 History calcium carbonate 1,250 mg PO DAILY 08/12/25 08/12/25 History carvedilol 3.125 mg tablet 3.125 mg PO Q12H 08/12/25 08/12/25 History ergocalciferol (vitamin D2) 1,250 1,250 mcg PO WEEKLY 08/12/25 08/12/25 History mcg (50,000 unit) capsule famotidine 20 mg tablet 20 mg PO DAILY 08/12/25 08/12/25 History insulin glargine 100 unit/mL (3 18 unit subcut HS 08/12/25 08/12/25 History mL) subcutaneous pen (Lantus Solostar U-100 Insulin) ondansetron 4 mg disintegrating 4 mg translingual Q6H PRN nausea 08/12/25 08/12/25 History tablet and vomiting Allergies Allergy/AdvReac Type Severity Reaction Status Date / Time morphine Allergy Rash Verified 03/29/25 18:48 peanut Allergy Rash Verified 03/29/25 18:48 tree nut Allergy Rash Verified 03/29/25 18:48 oxycodone AdvReac Nausea Verified 03/29/25 18:48 prednisone AdvReac Unknown Verified 03/29/25 18:48 Vital Signs Vital Signs - 24 hr 08/12/25 06:38 08/12/25 07:23 08/12/25 07:27 Temperature 97.9 F 98 F Pulse Rate 74 74 74 Respiratory Rate 19 24 H Blood Pressure 91/35 L 80/25 L Pulse Oximetry 92 94 Oxygen Delivery Nasal Cannula Oxygen Flow Rate 4 Fraction of Inspired Oxygen 08/12/25 07:30 08/12/25 07:54 08/12/25 08:08 Temperature Pulse Rate 72 76 75 Respiratory Rate 20 20 Blood Pressure 76/43 L 63/35 L 90/35 L Pulse Oximetry 93 95 Oxygen Delivery Oxygen Flow Rate Fraction of Inspired Oxygen 08/12/25 08:10 08/12/25 08:30 08/12/25 08:41 Temperature Pulse Rate 74 72 Respiratory Rate 20 Blood Pressure 80/27 L 59/36 L Pulse Oximetry 93 95 Oxygen Delivery Nasal Cannula Oxygen Flow Rate 4 Fraction of Inspired Oxygen 08/12/25 09:04 08/12/25 09:06 08/12/25 09:19 Temperature 97.2 F L 98 F Pulse Rate 72 72 88 Respiratory Rate 19 20 16 Blood Pressure 53/29 L 53/29 L 86/40 L Pulse Oximetry 95 93 100 Oxygen Delivery Oxygen Flow Rate Fraction of Inspired Oxygen 08/12/25 09:30 08/12/25 09:45 08/12/25 09:51 Temperature Pulse Rate 82 85 88 Respiratory Rate Blood Pressure 86/41 L 104/40 L Pulse Oximetry 100 Oxygen Delivery Mechanical Ventilation Oxygen Flow Rate Fraction of Inspired Oxygen 100 08/12/25 10:00 08/12/25 10:00 08/12/25 10:51 Temperature Pulse Rate 88 89 78 Respiratory Rate 15 12 Blood Pressure 120/50 L Pulse Oximetry 100 Oxygen Delivery Oxygen Flow Rate Fraction of Inspired Oxygen 08/12/25 10:51 08/12/25 11:28 08/12/25 11:31 Temperature 97.9 F Pulse Rate 78 81 80 Respiratory Rate 12 24 H Blood Pressure 85/39 L 92/36 L Pulse Oximetry 100 Oxygen Delivery Oxygen Flow Rate Fraction of Inspired Oxygen 08/12/25 11:47 08/12/25 11:51 08/12/25 12:00 Temperature 98.0 F Pulse Rate 81 81 81 Respiratory Rate 25 H 16 Blood Pressure 90/76 L 104/38 L 102/40 L Pulse Oximetry 100 100 Oxygen Delivery Oxygen Flow Rate Fraction of Inspired Oxygen 08/12/25 12:00 08/12/25 12:00 08/12/25 12:00 Temperature Pulse Rate 81 81 81 Respiratory Rate 24 H Blood Pressure 102/40 L Pulse Oximetry Oxygen Delivery Oxygen Flow Rate Fraction of Inspired Oxygen 08/12/25 12:00 08/12/25 12:00 08/12/25 12:00 Temperature Pulse Rate 81 81 Respiratory Rate 24 H Blood Pressure 102/40 L Pulse Oximetry 100 Oxygen Delivery Mechanical Ventilation Oxygen Flow Rate Fraction of Inspired Oxygen 50 08/12/25 12:19 08/12/25 12:30 08/12/25 12:38 Temperature 98.1 F Pulse Rate 80 88 81 Respiratory Rate 24 H Blood Pressure 98/60 L 110/34 L Pulse Oximetry 100 100 Oxygen Delivery Mechanical Ventilation Oxygen Flow Rate Fraction of Inspired Oxygen 50 08/12/25 12:41 08/12/25 13:02 08/12/25 13:19 Temperature 98.0 F Pulse Rate 80 79 79 Respiratory Rate 24 H Blood Pressure 110/34 L 88/67 L 121/45 L Pulse Oximetry 100 Oxygen Delivery Oxygen Flow Rate Fraction of Inspired Oxygen 08/12/25 13:24 08/12/25 13:27 08/12/25 13:56 Temperature 98.0 F Pulse Rate 77 77 77 Respiratory Rate 24 H Blood Pressure 121/45 L 121/45 L 121/45 L Pulse Oximetry 100 Oxygen Delivery Oxygen Flow Rate Fraction of Inspired Oxygen 08/12/25 13:58 08/12/25 14:00 08/12/25 14:00 Temperature Pulse Rate 77 77 77 Respiratory Rate Blood Pressure 113/40 L 106/33 L Pulse Oximetry Oxygen Delivery Oxygen Flow Rate Fraction of Inspired Oxygen 08/12/25 14:00 08/12/25 14:00 08/12/25 14:20 Temperature 97.5 F L Pulse Rate 77 77 77 Respiratory Rate 24 H 24 H 24 H Blood Pressure 95/36 L Pulse Oximetry 100 Oxygen Delivery Oxygen Flow Rate Fraction of Inspired Oxygen 08/12/25 14:55 08/12/25 16:00 08/12/25 16:00 Temperature Pulse Rate 87 73 Respiratory Rate Blood Pressure 116/44 L Pulse Oximetry 92 100 Oxygen Delivery Mechanical Ventilation Mechanical Ventilation Oxygen Flow Rate Fraction of Inspired Oxygen 50 50 08/12/25 16:00 08/12/25 16:00 08/12/25 16:00 Temperature Pulse Rate 73 73 73 Respiratory Rate 24 H Blood Pressure 116/44 L 116/44 L Pulse Oximetry Oxygen Delivery Oxygen Flow Rate Fraction of Inspired Oxygen 08/12/25 16:00 08/12/25 16:00 08/12/25 16:00 Temperature Pulse Rate 73 70 Respiratory Rate 24 H Blood Pressure Pulse Oximetry Oxygen Delivery Oxygen Flow Rate Fraction of Inspired Oxygen 50 08/12/25 17:51 08/12/25 17:52 08/12/25 18:00 Temperature Pulse Rate 73 77 75 Respiratory Rate 24 H 24 H Blood Pressure Pulse Oximetry Oxygen Delivery Oxygen Flow Rate Fraction of Inspired Oxygen 08/12/25 18:02 08/12/25 18:02 08/12/25 18:07 Temperature Pulse Rate 75 75 74 Respiratory Rate Blood Pressure 121/45 L 121/45 L 123/46 L Pulse Oximetry Oxygen Delivery Oxygen Flow Rate Fraction of Inspired Oxygen 08/12/25 18:07 08/12/25 18:30 08/12/25 19:00 Temperature Pulse Rate 74 75 96 Respiratory Rate 22 H Blood Pressure 123/46 L 109/41 L 110/79 Pulse Oximetry 95 Oxygen Delivery Oxygen Flow Rate Fraction of Inspired Oxygen 08/12/25 19:50 08/12/25 20:00 08/12/25 20:00 Temperature Pulse Rate 75 74 74 Respiratory Rate Blood Pressure 94/45 L 105/39 L Pulse Oximetry 100 100 Oxygen Delivery Mechanical Ventilation Oxygen Flow Rate Fraction of Inspired Oxygen 50 08/12/25 20:00 08/12/25 20:00 08/12/25 20:00 Temperature Pulse Rate 74 74 74 Respiratory Rate 24 H 24 H Blood Pressure Pulse Oximetry 100 Oxygen Delivery Mechanical Ventilation Oxygen Flow Rate Fraction of Inspired Oxygen 50 08/12/25 20:00 08/12/25 20:15 08/12/25 20:15 Temperature Pulse Rate 74 74 Respiratory Rate Blood Pressure 105/39 L 105/39 L Pulse Oximetry Oxygen Delivery Oxygen Flow Rate Fraction of Inspired Oxygen 50 08/12/25 20:55 08/12/25 21:00 08/12/25 22:00 Temperature Pulse Rate 74 76 77 Respiratory Rate 24 H 24 H Blood Pressure 94/46 L Pulse Oximetry 100 Oxygen Delivery Oxygen Flow Rate Fraction of Inspired Oxygen Results Labs 08/12/25 15:18 08/12/25 15:18 Labs: Short CBC 08/12/25 08/12/25 Range/Units 07:01 15:18 WBC 0.7 L* 1.7 L* (4.5-10.0) K/mm3 Hgb 6.3 L* D 9.1 L (12.0-15.0) g/dL Hct 18.9 L* 26.9 L (37.0-47.0) % Plt Count 24 L* D 127 L D (150-375) k/mm3 BMP 08/12/25 08/12/25 07:03 15:18 Sodium 129 L 129 L Potassium 4.2 3.8 Chloride 94 L 95 L Carbon Dioxide 23 14 L BUN 98 H D 90 H Creatinine 4.59 H 4.55 H Glucose 154 H 47 L* Calcium 8.4 8.7 Cardiac Enzymes 08/12/25 08/12/25 08/12/25 Range/Units 07:03 10:53 15:18 Total Creatine Kinase 57 (30-135) U/L Troponin I 0.060 H* 0.057 H* 0.052 H* (0.000-0.034) ng/mL Liver Function 08/12/25 08/12/25 Range/Units 07:03 15:18 Total Bilirubin 8.8 H 10.1 H (0.2-1.3) mg/dL AST 73 H 71 H (14-36) U/L ALT 46 H 47 H (6-35) U/L Alkaline Phosphatase 141 H 103 (38-126) U/L Albumin 2.3 L 3.3 L (3.5-5.1) g/dL Urine 08/12/25 Range/Units 07:15 Urine Color Dark yellow (Yellow) Urine Appearance Turbid H (Clear) Urine pH 5.0 (5.0-9.0) Ur Specific [place] 1.014 (1.001-1.035) Urine Protein 2+ H (Negative) mg/dL Urine Glucose (UA) Negative (Negative) mg/dL
[2025-08-13] VITALS: BP 90/35; BP 95/41; PULSE 81; RESP 24; TEMP 35.7; O2SAT 98
[2025-08-13 00:31] VITALS: BP 87/35; PULSE 81
[2025-08-13] MEDS: PHENYLEPHRINE HCL INJ 50 MG in SODIUM CHLORIDE 0.9% IV 245 ML 54 ML IV CONT (00:31)
[2025-08-13] MEDS: ALBUMIN HUMAN 25% 25 GM/100 ML 100 ML IVPB (00:58)
[2025-08-13 01:00] VITALS: BP 95/40; PULSE 81; RESP 24; TEMP 35.5; O2SAT 93
--- NOTE | 2025-08-13 01:55 | PC.NURSE ---
Pt transported to [facility] at this time, per airvac. Report given to Christy at [facility].. Pt going into room 8418. Pt's at bedside and agreeable to pt transfer. Report also given to airvac nurse at [facility].
--- NOTE | 2025-08-13 11:03 | PM.TDS ---
Transfer Discharge Sum: Prov Provider Date of admission: 08/12/25 08:50 Primary care physician: PHYSICIAN NOT ON STAFF Admitting clinician: Yarely Yao MD Consults: 08/12/25 Consult to Physician Routine Comment: Spoke with Dr. Henley Consulting Provider: Paramjit Henley Reason for consultation: Liver Failure Has provider been notified: Yes Consult to Physician Routine Comment: Spoke with Suze Consulting Provider: Segun Peña Reason for consultation: possible ischemic bowel Has provider been notified: Yes 08/12/25 08:52 Consult to Physician Routine Comment: Dr. Hoyos contacted by the ED Consulting Provider: Kale Hoyos call center receptionist/MD group to consult: Soha Reason for consultation: critical pt Has provider been notified: Yes 08/12/25 13:41 Consult to Physician Routine Comment: Voicemail left for Dr. Quinn Consulting Provider: Alfonso Quinn call center receptionist/MD group to consult: Nephrology Reason for consultation: Acute renal failure, lactic acidosis, septic shock Has provider been notified: Yes Attending physician on discharge: Kale Hoyos Discharging clinician: Kale Hoyos Anticipated date of transfer: 08/13/25 Receiving physician/facility: [facility] DS: Admitting Diagnosis Discharge Date 08/13/25 Admitting Diagnosis Acute respiratory failure, septic shock, acute kidney injury, liver dysfunction, anemia, thrombocytopenia, lactic acidosis, pancytopenia DS: Discharge Diagnosis Discharge Diagnosis (1) Acute respiratory failure: Code(s): J96.00 - Acute respiratory failure, unspecified whether with hypoxia or hypercapnia Status: Acute Assessment and Plan: 08/12: Upon arrival to the ICU, patient was hypoxic, with agonal breathing, urgently intubated patient -currently on CMV mode of ventilation, peep of 8, 100% FiO2, -ABGs and chest x-ray reviewed, wean FiO2 to maintain O2 sats > 92% -sedated with infuse fentanyl and Versed infusion -maintain RASS of 0 to -2 -daily SAT and SBT (2) Septic shock: Code(s): A41.9 - Sepsis, unspecified organism; R65.21 - Severe sepsis with septic shock Status: Acute Assessment and Plan: Septic shock likely related to UTI/pneumonia -neutropenia, afebrile -08/12: Blood cultures have been obtained -08/12: Urine culture are ordered -08/12: Start patient on cefepime, azithromycin and vanc, -patient received 2 L of IV fluids in the ED, -will be receiving multiple units of blood product -will start albumin q.6 hours x4 doses for intravascular volume expansion -lactic acid was 5.0 on admission, repeat was 6.3, will trend lactic acid -currently on Levophed, vasopressin and Nolan-Synephrine, maintain systolic blood pressures greater than 100 mmHg>, map > 65 mmHg for adequate end organ perfusion -reason lactic acidosis most likely related to septic shock, liver dysfunction and or renal dysfunction, could also be related to ischemic bowel (3) Acute renal failure: Code(s): N17.9 - Acute kidney failure, unspecified Status: Acute Assessment and Plan: Patient presented with acute kidney injury, creatinine not in remission was 4.59 on 08/12, (baseline creatinine 1 point 1 4-1.22 (April 2025) -patient has been adequately fluid resuscitated with 2 L of IV fluids and multiple units of blood product -albumin for intravascular volume expansion -will consult nephrology -check urine lytes and urine eosinophils along with CK level -check renal ultrasound -monitor urine output, electrolytes and renal function 08/12: CT scan of the chest abdomen and pelvis: Impression: Showed pulmonary vascular congestion small bilateral pleural effusions cirrhosis with splenomegaly and prominent splenorenal collaterals consistent with secondary portal hypertension. Bilateral nephrolithiasis without hydronephrosis cm wall thickening in the proximal colon likely related to hepatic colopathy, cholelithiasis. Extensive body wall mesenteric and retroperitoneal edema and small amount of ascites likely related to liver disease. 6.0 x 4.7 cm loculated fluid collection without evident solid soft tissue component situated in the space between the ends of chronic nonunited right clavicle fracture (4) Altered mental status: Code(s): R41.82 - Altered mental status, unspecified Status: Acute Assessment and Plan: Likely related to hypotension, possible hypoxia/respiratory failure, shock, acute renal failure -currently intubated and sedated -08/12: CT scan brain with no acute intracranial abnormalities (5) Acute UTI: Code(s): N39.0 - Urinary tract infection, site not specified Status: Acute Assessment and Plan: Urinalysis reflective of UTI, -cultures obtained, continue antibiotic as above (6) Anemia: Code(s): D64.9 - Anemia, unspecified Status: Acute Assessment and Plan: Patient presented with anemia with hemoglobin of 6.3 -according the has been patient was 6.9 and a hemoglobin on 08/09 or 08/10 and was transfused 1 unit of packed RBCs 2 days ago -08/12: 2 units packed RBCs were ordered in the ER and have been transfuse -could be related to septic shock, liver cirrhosis, bone marrow suppression, GI bleed -no overt bleeding has been noticed, will continue to monitor and transfuse as required, will maintain hemoglobin > 7.0 (7) Thrombocytopenia: Code(s): D69.6 - Thrombocytopenia, unspecified Status: Acute Assessment and Plan: Patient has a history of thrombocytopenia and normally has a platelet count of 60s to 90s .-08/12: Platelet counts were 24, given anemia and low hemoglobin, transfuse 2 units of platelets -will continue to monitor (8) Type 2 diabetes mellitus: Code(s): E11.9 - Type 2 diabetes mellitus without complications Status: Acute Assessment and Plan: Sliding scale insulin Accu-Cheks (9) Liver cirrhosis: Code(s): K74.60 - Unspecified cirrhosis of liver Status: Acute Assessment and Plan: Liver cirrhosis likely secondary to AYALA, patient was supposed to meet up with [facility] liver transplant team this week. -ER physician stated that the patient has been accepted to [facility] and awaiting a bed. -ammonia levels within normal limits with patient is on lactulose at home, will start daily lactulose here (10) Coagulopathy: Code(s): D68.9 - Coagulation defect, unspecified Status: Acute Assessment and Plan: Coagulopathy with INR of 2.9 an elevated PTT -likely related to liver dysfunction -vitamin K has been ordered -will give 1 unit of FFP Plan DVT prophylaxis: SCDs, no chemoprophylaxis due to anemia and thrombocytopenia Stress ulcer prophylaxis: Protonix IV q.12 hours Nutrition: NPO for now Code Status: DNR Critical Care Time Spent: 77 minutes Discussed with patient's , daughter and other family members and discuss with them in details regarding patient's condition and plan of care. They are aware that patient's condition is guarded. The agreed upon making her a DNR. The aware that patient is in septic shock requiring 3 blood pressure support medications antibiotic. That she is receiving packed RBCs, platelets, FFP, vitamin K for liver dysfunction. She also has acute renal dysfunction ended her acid levels are elevated. I answered all questions Due to a high probability of clinically significant, life threatening deterioration, the patient required my highest level of preparedness to intervene emergently and I personally spent this critical care time directly and personally managing the patient. This critical care time included obtaining a history; examining the patient; pulse oximetry; ordering and review of studies; arranging urgent treatment with development of a management plan; evaluation of patient's response to treatment; frequent reassessment; and discussions with other providers. It was exclusive of separately billable procedures and treating other patients and teaching time. Please see Assessment and Plan section and the rest of the note for further information on patient assessment and treatment This dictation may have been done utilizing a voice recognition system. Attempts have been made to correct errors. However, there may be uncorrected grammatical, spelling, and recognitions errors present. Transfer Discharge Sum: Med Medications Active and Home Medications: Home Medications acetaminophen 500 mg tablet 500 mg PO BID PRN Mild Pain (1-3) Or Fever #0 tabs 04/12/25 [Rx Confirmed 08/12/25] lactulose 10 gram/15 mL oral solution 20 g (30 mL) PO 5 TIMES DAILY #0 mL 04/12/25 [Rx Confirmed 08/12/25] bumetanide 1 mg tablet 1 mg PO BID 08/12/25 [History Confirmed 08/12/25] calcium carbonate 1,250 mg PO DAILY 08/12/25 [History Confirmed 08/12/25] carvedilol 3.125 mg tablet 3.125 mg PO Q12H 08/12/25 [History Confirmed 08/12/25] ergocalciferol (vitamin D2) 1,250 mcg (50,000 unit) capsule 1,250 mcg PO WEEKLY 08/12/25 [History Confirmed 08/12/25] famotidine 20 mg tablet 20 mg PO DAILY 08/12/25 [History Confirmed 08/12/25] insulin glargine 100 unit/mL (3 mL) subcutaneous pen (Lantus Solostar U-100 Insulin) 18 unit subcut HS 08/12/25 [History Confirmed 08/12/25] ondansetron 4 mg disintegrating tablet 4 mg translingual Q6H PRN nausea and vomiting 08/12/25 [History Confirmed 08/12/25] Transfer Discharge Sum: Hosp Hospital Course Hospital course: Makenna Wilson is a 64 year old female with significant past medical history of AYALA, diabetes type 2, hypertension, atrial fibrillation, mild diastolic dysfunction, thrombocytopenia presented the ED from a local [facility] facility with low blood sugars, altered mental status and hypotension. The ER patient was found to be in acute renal failure, anemic, hypotensive. Patient was given 2 L IV fluid bolus and started on Levophed through a peripheral IV. Patient was transferred to the ICU for further management. Upon arrival to the ICU due to patient hypoxic, agonal breathing, emergently intubated the patient after providing bag-mask ventilation. Patient was hypotensive with systolics in the 60s upon arrival to the ICU, Levophed was increased and was infusing through a peripheral access. Given her thrombocytopenia I urgently placed a right femoral central line. Put in labs in the ED showed WBC count of 0.7, hemoglobin 6.3, platelets 24. Sodium 129, potassium 4.2, CO2 23, BUN 98, creatinine 4.59, blood sugars 154. INR of 2.9 PTT of 53.3. Elevated LFTs, troponin 0.060 in 0.057, albumin of 2.3, lipase 12, TSH 9.63, free T4 1.53. UA reflective of UTI. Influenza, RSV and SARS-CoV-2 PCR were negative -chest x-ray showed small right pleural effusion, small to moderate-sized left-sided pleural effusion patchy consolidation left lung most prominent in the left lower now. Interstitial and airspace opacities scattered throughout both lungs defect in the right mid clavicle with an associated 5.8 cm mass -CT scan of the chest abdomen and pelvis: Showed pulmonary vascular congestion small bilateral pleural effusions cirrhosis with splenomegaly and prominent splenorenal collaterals consistent with secondary portal hypertension. Bilateral nephrolithiasis without hydronephrosis cm wall thickening in the proximal colon likely related to hepatic colopathy, cholelithiasis. Extensive body wall mesenteric and retroperitoneal edema and small amount of ascites likely related to liver disease. 6.0 x 4.7 cm loculated fluid collection without evident solid soft tissue component situated in the space between the ends of chronic nonunited right clavicle fracture Patient seen examined upon arrival to the ICU, was intubated, placed in urgent central line after discussing with the family. Placed on CMV mode of ventilation, peep of 8, 100% FiO2 for now. Patient was on Levophed, which was maxed out and then was started on vasopressin and phenylephrine was also added. Patient had has 2 units of packed RBCs, 1 unit of FFP and 2 units of platelets ordered. Repeat lactic acid was 6.3 (from 5.0) 08/12/2025: Central line was inserted along with arterial line, patient was also intubated. Vasopressor requirements continued to increase, patient was on maximum doses of Levophed, Nolan-Synephrine and vasopressin. Lactic acid continue to trend up 5.0, 6.3, 9.3 and 11.8. Nephrology, GI and surgery evaluated the patient, unsure if this lactic acidosis is due to severe septic shock, ischemic bowel, liver dysfunction, renal dysfunction. Urine, blood cultures were pending, patient was azithromycin, cefepime and vancomycin 08/13/2025 around 2:00 a.m., patient was transferred to [facility] via [facility]. Patient Condition: Gaurded Prognosis Time Spent with Patient Time attestation: Total time spent providing and/or coordinating transfer services: 25 minutes Exam Narrative: General: Yellow skin discoloration, intubated, sedated, significantly ill-appearing female HEENT:? Pupils are equal, sluggish, icteric, ETT in place Neck:? Supple Respiratory:? Coarse breath sounds bilaterally, decreased at bases, no wheezing, adequate air entry Cardiac:? S1-S2 is normal, regular rate and rhythm Abdomen:? Soft, nontender, nondistended, obese, hypoactive bowel sounds Extremities:? Bruising noted bilateral upper and lower extremities, adequate pedal pulses bilateral Neuro:? Patient is intubated, sedated, does not open eyes or follow simple commands, does not withdraw to pain Skin:? Yellow discoloration/jaundice Psych:? Unable to assess at this time DS: Data Data Completed and Pending Labs on day of discharge: Labs from last 24 hours 08/13/25 08/12/25 08/12/25 00:02 21:52 20:26 WBC RBC Hgb Hct MCV MCH MCHC RDW Plt Count MPV Immature Gran % (Auto) Neut % (Auto) Lymph % (Auto) [place] % (Auto) Eos % (Auto) Baso % (Auto) Lymph # (Auto) [place] # (Auto) Eos # (Auto) Baso # (Auto) Abs Immat Gran (auto) Absolute Neuts (auto) Absolute Nucleated RBC Total Counted Neutrophils % (Manual) Band Neutrophils % Lymphocytes % (Manual) Eosinophils % (Manual) Metamyelocytes % Nucleated RBC % Abs Neuts (Manual) Abs Lymphs (Manual) Absolute Eos (Manual) Platelet Estimate % Immature Plt Fraction Hypochromasia Anisocytosis Liseth Cells Acanthocytes (Spur) Schistocytes PT INR APTT Puncture Site ABG pH ABG pCO2 ABG pO2 ABG PO2/FiO2 Ratio ABG HCO3 ABG O2 Saturation ABG O2 Content ABG Base Excess A-a Gradient Oxyhemoglobin Carboxyhemoglobin Methemoglobin Reduced Hemoglobin Total Hemoglobin O2 Delivery Device O2 Liters/Min Minute Volume Vent Rate Vent Mode FiO2 Tidal Volume PEEP Peak Inspir Pressure Pressure Support Sodium Potassium Chloride Carbon Dioxide Anion Gap BUN Creatinine Estim Creat Clear Calc Estimated GFR Glucose POC Capillary Glucose 100 99 Lactic Acid 11.8 H* Calcium Phosphorus Magnesium Total Bilirubin AST ALT Alkaline Phosphatase Ammonia Total Creatine Kinase Troponin I Total Protein Albumin Free T4 Total T3 Urine Eosinophils Ur Random Sodium Ur Random Potassium Urine Creatinine Blood Type Antibody Screen Crossmatch 08/12/25 08/12/25 08/12/25 19:58 18:49 17:10 WBC RBC Hgb Hct MCV MCH MCHC RDW Plt Count MPV Immature Gran % (Auto) Neut % (Auto) Lymph % (Auto) [place] % (Auto) Eos % (Auto) Baso % (Auto) Lymph # (Auto) [place] # (Auto) Eos # (Auto) Baso # (Auto) Abs Immat Gran (auto) Absolute Neuts (auto) Absolute Nucleated RBC Total Counted Neutrophils % (Manual) Band Neutrophils % Lymphocytes % (Manual) Eosinophils % (Manual) Metamyelocytes % Nucleated RBC % Abs Neuts (Manual) Abs Lymphs (Manual) Absolute Eos (Manual) Platelet Estimate % Immature Plt Fraction Hypochromasia Anisocytosis Liseth Cells Acanthocytes (Spur) Schistocytes PT INR APTT Puncture Site ABG pH ABG pCO2 ABG pO2 ABG PO2/FiO2 Ratio ABG HCO3 ABG O2 Saturation ABG O2 Content ABG Base Excess A-a Gradient Oxyhemoglobin Carboxyhemoglobin Methemoglobin Reduced Hemoglobin Total Hemoglobin O2 Delivery Device O2 Liters/Min Minute Volume Vent Rate Vent Mode FiO2 Tidal Volume PEEP Peak Inspir Pressure Pressure Support Sodium Potassium Chloride Carbon Dioxide Anion Gap BUN Creatinine Estim Creat Clear Calc Estimated GFR Glucose POC Capillary Glucose 97 85 86 Lactic Acid Calcium Phosphorus Magnesium Total Bilirubin AST ALT Alkaline Phosphatase Ammonia Total Creatine Kinase Troponin I Total Protein Albumin Free T4 Total T3 Urine Eosinophils Ur Random Sodium Ur Random Potassium Urine Creatinine Blood Type Antibody Screen Crossmatch 08/12/25 08/12/25 08/12/25 15:18 14:05 11:40 WBC 1.7 L* RBC 2.79 L Hgb 9.1 L Hct 26.9 L MCV 96.4 MCH 32.6 MCHC 33.8 RDW 19.8 H Plt Count 127 L D MPV 9.3 Immature Gran % (Auto) Not Reportable Neut % (Auto) Not Reportable Lymph % (Auto) Not Reportable [facility] % (Auto) Not Reportable Eos % (Auto) Not Reportable Baso % (Auto) Not Reportable Lymph # (Auto) Not Reportable [facility] # (Auto) Not Reportable Eos # (Auto) Not Reportable Baso # (Auto) Not Reportable Abs Immat Gran (auto) Not Reportable Absolute Neuts (auto) Not Reportable Absolute Nucleated RBC Not Reportable Total Counted 100 Neutrophils % (Manual) 33 L Band Neutrophils % 19 H Lymphocytes % (Manual) 34.0 Eosinophils % (Manual) 10 H Metamyelocytes % 4 Nucleated RBC % Not Reportable Abs Neuts (Manual) 0.88 L Abs Lymphs (Manual) 0.57 L Absolute Eos (Manual) 0.17 Platelet Estimate Slightly decreased % Immature Plt Fraction 2.2 Hypochromasia 1+ Anisocytosis 1+ [place] Cells 1+ Acanthocytes (Spur) Occasional Schistocytes Rare PT 26.1 H INR 2.4 APTT 57.5 H Puncture Site Right radial ABG pH 7.364 ABG pCO2 33.9 L ABG pO2 346.7 H ABG PO2/FiO2 Ratio 3.47 ABG HCO3 18.9 L ABG O2 Saturation 99.8 ABG O2 Content 13.5 L ABG Base Excess -5.8 A-a Gradient 332.4 Oxyhemoglobin 98.5 Carboxyhemoglobin 1.0 Methemoglobin 0.1 Reduced Hemoglobin 0.4 Total Hemoglobin 9.1 L O2 Delivery Device Ventilator O2 Liters/Min Not Reportable Minute Volume Not Reportable Vent Rate 24 Vent Mode Cmv FiO2 100 Tidal Volume 400 PEEP 8 Peak Inspir Pressure Not Reportable Pressure Support Not Reportable Sodium 129 L Potassium 3.8 Chloride 95 L Carbon Dioxide 14 L Anion Gap 20 H BUN 90 H Creatinine 4.55 H Estim Creat Clear Calc 13 Estimated GFR 10 L Glucose 47 L* POC Capillary Glucose Lactic Acid 9.3 H* Calcium 8.7 Phosphorus 5.2 H Magnesium 1.7 Total Bilirubin 10.1 H AST 71 H ALT 47 H Alkaline Phosphatase 103 Ammonia 57 H Total Creatine Kinase 57 Troponin I 0.052 H* Total Protein 6.6 Albumin 3.3 L Free T4 Total T3 Urine Eosinophils Rare Ur Random Sodium 33 Ur Random Potassium 28.5 Urine Creatinine 78.0 Blood Type Antibody Screen Crossmatch 08/12/25 08/12/25 10:53 07:01 WBC RBC Hgb Hct MCV MCH MCHC RDW Plt Count MPV Immature Gran % (Auto) Neut % (Auto) Lymph % (Auto) [facility] % (Auto) Eos % (Auto) Baso % (Auto) Lymph # (Auto) [facility] # (Auto) Eos # (Auto) Baso # (Auto) Abs Immat Gran (auto) Absolute Neuts (auto) Absolute Nucleated RBC Total Counted Neutrophils % (Manual) Band Neutrophils % Lymphocytes % (Manual) Eosinophils % (Manual) Metamyelocytes % Nucleated RBC % Abs Neuts (Manual) Abs Lymphs (Manual) Absolute Eos (Manual) Platelet Estimate % Immature Plt Fraction Hypochromasia Anisocytosis Liseth Cells Acanthocytes (Spur) Schistocytes PT INR APTT Puncture Site ABG pH ABG pCO2 ABG pO2 ABG PO2/FiO2 Ratio ABG HCO3 ABG O2 Saturation ABG O2 Content ABG Base Excess A-a Gradient Oxyhemoglobin Carboxyhemoglobin Methemoglobin Reduced Hemoglobin Total Hemoglobin O2 Delivery Device O2 Liters/Min Minute Volume Vent Rate Vent Mode FiO2 Tidal Volume PEEP Peak Inspir Pressure Pressure Support Sodium Potassium Chloride Carbon Dioxide Anion Gap BUN Creatinine Estim Creat Clear Calc Estimated GFR Glucose POC Capillary Glucose Lactic Acid 6.3 H* Calcium Phosphorus Magnesium Total Bilirubin AST ALT Alkaline Phosphatase Ammonia Total Creatine Kinase Troponin I 0.057 H* Total Protein Albumin Free T4 1.53 Total T3 0.39 L Urine Eosinophils Ur Random Sodium Ur Random Potassium Urine Creatinine Blood Type O Negative Antibody Screen Negative Crossmatch See Detail
--- NOTE | 2025-08-17 07:32 | PC.NURSE ---
Pt was transferred to [facility]. Urine cx growing gram negative rods in preliminary status.
== END 2025-08-13 01:30 | disposition short-term general hospital (02) | DRG 871 ==
LOC: ANHED 08:50 → ANHICU 18:01
PROVIDERS: Emergency Medicine; Admitting Provider General Practice; Emergency Provider Emergency Medicine; Visit Provider Internal Medicine
DX: A41.59 Other Gram-negative sepsis (principal); J18.9 Pneumonia, unspecified organism; R65.21 Severe sepsis with septic shock; K72.00 Acute and subacute hepatic failure without coma; J96.01 Acute respiratory failure with hypoxia; N39.0 Urinary tract infection, site not specified; D68.9 Coagulation defect, unspecified; I48.20 Chronic atrial fibrillation, unspecified; E87.21 Acute metabolic acidosis; N17.8 Other acute kidney failure; J81.1 Chronic pulmonary edema; K55.9 Vascular disorder of intestine, unspecified; D61.818 Other pancytopenia; B96.1 Klebsiella pneumoniae [K. pneumoniae] as the cause of diseases classified elsewhere; R68.0 Hypothermia, not associated with low environmental temperature; E11.65 Type 2 diabetes mellitus with hyperglycemia; K75.81 Nonalcoholic steatohepatitis (NASH); K74.60 Unspecified cirrhosis of liver; D73.2 Chronic congestive splenomegaly; R41.82 Altered mental status, unspecified; D69.6 Thrombocytopenia, unspecified; I95.9 Hypotension, unspecified; I51.89 Other ill-defined heart diseases; N20.0 Calculus of kidney; Z66 Do not resuscitate; D64.9 Anemia, unspecified; Z20.822 Contact with and (suspected) exposure to COVID-19; Z79.4 Long term (current) use of insulin
CPT/HCPCS: 36415; 36430; 36600; 70450; 71045; 71250; 74176; 76770; 80053; 81001; 82140; 82375; 82550; 82570; 82803; 82805; 82948; 83050; 83605; 83690; 83735; 84100; 84133; 84300; 84439; 84443; 84480; 84484; 85018; 85025; 85055; 85610; 85730; 85999; 86850; 86900; 86901; 86920; 87040; 87086; 87186; 87637; 87641; 93005; 94002; 96365; 96367; 99291; C1751; J0456; J0692; J0696; J2250; J2371; J2470; J3010; J3373; J3430; J7030; J7050; J7120; P9016; P9017; P9034; P9045; P9047